=== PATIENT | female | born 1975 | race Caucasian/White ===

== ENCOUNTER 2017-11-14 20:35 | Observation (INO) | payer OTHER ==
[~2017-11-14] VITALS: Ht 160 cm; Wt 111.4 kg
[~2017-11-14 20:35] MED LIST: ALBU6.7H IH; AZIT250T6 PO; DICY20TA3 PO; DULO20CA50 PO; DULO60CA6 PO; FLUT16SP2 NS; HYDR-971 PO; LORA10TA68 PO; MONT10TA6 PO; MONT4GRA PO; NEBI10TA3 PO; OMEP40CA5 PO; ONDA8TAB12 PO; PREG150C PO; PREG20SO PO; PROP80CA3 PO; RANO10002 PO; TRAM50TA PO; TRAZ-86 PO
--- NOTE | 2017-11-14 21:14 | EKG ---
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
[2017-11-14] MEDS ORDERED: ASPIRIN 81 MG TAB.CHEW PO ONE (21:15)
[2017-11-14 21:21] LABS: BASO % 1 % (0-3); EOS # 0.1 x10^3/uL (0.0-0.7); EOS % 2 % (0-3); HEMATOCRIT 40.4 % (36.0-47.0); HEMOGLOBIN 13.6 g/dL (12.0-15.5); LYMPH # 2.2 x10^3/uL (1.0-4.8); LYMPH % 42 % (24-48); MEAN CORPUSCULAR HEMOGLOBIN 31 pg (25-35); MEAN CORPUSCULAR HGB CONC 34 g/dL (31-37); MEAN CORPUSCULAR VOLUME 92 fL (79-100); MONO # 0.4 x10^3/uL (0.0-1.1); MONO % 8 % (0-9); NEUT # 2.4 x10^3uL (1.8-7.7); NEUT % 47 % (31-73); PLATELET COUNT 267 x10^3/uL (140-400); RED BLOOD COUNT 4.39 x10^6/uL (3.50-5.40); RED CELL DISTRIBUTION WIDTH 12.9 % (11.5-14.5); WHITE BLOOD COUNT 5.2 x10^3/uL (4.0-11.0)
[2017-11-14 21:39] LABS: ALBUMIN 3.6 g/dL (3.4-5.0); CALCIUM 9.2 mg/dL (8.5-10.1); CREATININE 0.7 mg/dL (0.6-1.0); GFR 92.7; POTASSIUM 3.7 mmol/L (3.5-5.1); TOTAL BILIRUBIN 0.4 mg/dL (0.2-1.0); TOTAL PROTEIN 7.3 g/dL (6.4-8.2)
--- NOTE | 2017-11-14 21:40 | PHYS DOC ---
Past History Past Medical History: Arrhythmia, Asthma, Bronchitis, COPD, Fibromyalgia, Migraines Past Surgical History: Cholecystectomy, Gastric Bypass, Hysterectomy, Other Smoking: Non-smoker Alcohol Use: None Drug Use: None Adult General Chief Complaint Chief Complaint: CHEST PAIN HPI HPI 42-year-old female presents with sudden onset chest pain 90 minutes ago. The patient was walking down a flight of stairs when she began have some pain. She describes the pain as a sharp sensation in her left chest and into her left arm. He feels as though someone is jabbing her. At its worst was 8 out of 10. She has been coming and going in waves. At this time it is modest in pain level. She does not give me a number. The patient did have shortness of breath with this episode but denies diaphoresis. She was and continues to be flushed in the face. The patient has had symptoms similar to this in the past with exertion, but the pain is not this great. She has a history of stress test and cardiac catheter. She had a previous "small blockage that was cleared". She sees a hoisting engineer every 6 months. Until today her follow-up exams have been unremarkable. Patient denies cough, fever, chills, diarrhea, constipation. Review of Systems Review of Systems Constitutional: Denies fever or chills [] Eyes: Denies change in visual acuity, redness, or eye pain [] HENT: Denies nasal congestion or sore throat [] Respiratory: Denies cough or shortness of breath [] Cardiovascular: No additional information not addressed in HPI [] GI: Denies abdominal pain, nausea, vomiting, bloody stools or diarrhea [] : Denies dysuria or hematuria [] Musculoskeletal: Has full tenderness, left arm tenderness[] Integument: Denies rash or skin lesions [] Neurologic: Denies headache, focal weakness or sensory changes [] Endocrine: Denies polyuria or polydipsia [] All other systems were reviewed and found to be within normal limits, except as documented in this note. Current Medications Current Medications Current Medications Medications (Trade) Dose Ordered Sig/Donna Start Time Stop Time Status Last Admin Dose Admin Aspirin (Children'S Aspirin) 324 mg 1X ONCE 11/14/17 21:15 11/14/17 21:16 DC 11/14/17 21:15 324 MG Allergies Allergies Allergies Coded Allergies Type Severity Reaction Last Updated Verified Iodinated Contrast Media - IV Dye Allergy Intermediate 03/26/15 Yes Sulfa (Sulfonamide Antibiotics) Allergy Unknown 03/26/15 Yes Physical Exam Physical Exam Constitutional: Well developed, well nourished, no acute distress, non-toxic appearance. [] HENT: Normocephalic, atraumatic, bilateral external ears normal, oropharynx moist, no oral exudates, nose normal. [] Eyes: PERRLA, EOMI, conjunctiva normal, no discharge. [] Neck: Normal range of motion, no tenderness, supple, no stridor. [] Cardiovascular:Heart rate regular rhythm, no murmur [] Lungs & Thorax: Bilateral breath sounds clear to auscultation. Significant tenderness to palpation of the left chest and left upper arm[] Abdomen: Bowel sounds normal, soft, no tenderness, no masses, no pulsatile masses. [] Skin: Warm, dry, no erythema, no rash. [] Back: No tenderness, no CVA tenderness. [] Extremities: No tenderness, no cyanosis, no clubbing, ROM intact, no edema. [] Neurologic: Alert and oriented X 3, normal motor function, normal sensory function, no focal deficits noted. [] Psychologic: Affect normal, judgement normal, mood normal. [] Current Patient Data Vital Signs Vital Signs Date Time Temp Pulse Resp B/P (MAP) Pulse Ox O2 Delivery O2 Flow Rate FiO2 11/14/17 21:17 62 18 140/94 (109) 99 11/14/17 20:41 97.7 Room Air Lab Results Laboratory Tests Test 11/14/17 21:06 White Blood Count 5.2 x10^3/uL (4.0-11.0) Red Blood Count 4.39 x10^6/uL (3.50-5.40) Hemoglobin 13.6 g/dL (12.0-15.5) Hematocrit 40.4 % (36.0-47.0) Mean Corpuscular Volume 92 fL (79-100) Mean Corpuscular Hemoglobin 31 pg (25-35) Mean Corpuscular Hemoglobin Concent 34 g/dL (31-37) Red Cell Distribution Width 12.9 % (11.5-14.5) Platelet Count 267 x10^3/uL (140-400) Neutrophils (%) (Auto) 47 % (31-73) Lymphocytes (%) (Auto) 42 % (24-48) Monocytes (%) (Auto) 8 % (0-9) Eosinophils (%) (Auto) 2 % (0-3) Basophils (%) (Auto) 1 % (0-3) Neutrophils # (Auto) 2.4 x10^3uL (1.8-7.7) Lymphocytes # (Auto) 2.2 x10^3/uL (1.0-4.8) Monocytes # (Auto) 0.4 x10^3/uL (0.0-1.1) Eosinophils # (Auto) 0.1 x10^3/uL (0.0-0.7) Basophils # (Auto) 0.0 x10^3/uL (0.0-0.2) EKG EKG Sinus rhythm, rate 62, leftward axis, no ST elevations or depressions. Shallow T waves V2 through V6[] Radiology/Procedures Radiology/Procedures [] Impressions: Interpretation: There are no acute findings. No consolidations, no pneumothorax , no effusions. Course & Med Decision Making Course & Med Decision Making Pertinent Labs and Imaging studies reviewed. (See chart for details) Patient's labs are unremarkable. Her troponin is negative. Her EKG is unremarkable. Her chest x-ray is unremarkable. The patient continues to have left-sided chest discomfort. We will try nitroglycerin and morphine as necessary. Given the recent start of her pain, I feel as though she needs to have a full 3 troponin rule out. I discussed the patient with the hospitalist, Dr. Whitlock and he has agreed to admit the patient for chest pain rule out. [] Dragon Disclaimer Dragon Disclaimer This electronic medical record was generated, in whole or in part, using a voice recognition dictation system. Departure Departure: Referrals: REBEL PINA (PCP) JALEN JOHNSON DO Nov 14, 2017 21:40
[2017-11-14] MEDS: NITROGLYCERIN SUBLINGUAL 0.4 MG BOTTLE OF 25. SL ONE ×2 (22:56→23:00)
[2017-11-14] MEDS ORDERED: ONDANSETRON PF 4 MG/2 ML VIAL. IV PRN (23:00)
[2017-11-14] MEDS ORDERED: NITROGLYCERIN SUBLINGUAL 0.4 MG BOTTLE OF 25. SL PRN (23:00)
[2017-11-14] MEDS ORDERED: IV NORMAL SALINE 1,000ML 1,000 ML IV ONE (23:00)
[2017-11-14] MEDS: MORPHINE SULFATE 2 MG/ML DISP.SYRIN. IV PRN (23:13)
--- NOTE | 2017-11-14 23:28 | RAD ---
AP chest. HISTORY: Chest pain AP view was taken of the chest. Lungs are clear. Heart is normal in size. There is no effusion. There is hypertrophic change in the spine. IMPRESSION: 1. No acute chest disease. Electronically signed by: Magdi Newberry MD (11/14/2017 11:25 PM) [facility]
--- NOTE | 2017-11-14 23:45 | NUR ---
Pt was admitted from ER to [facility] room 119 via [facility], accompanied by EMS & nursing staff. Pt transferred [facility] to bed x3 assist. Pt here for c/o left arm & shoulder pain & r/o CP. Pt currently denies chest pain but states that her left arm/shoulder hurts, rating it 4-5/10. Pt has had an Gastric bypass (2013) and has had nausea &/or vomiting with intake ever since. Dietary consulted, along with PT/OT and CM. Admission assessment completed. Health history and home medications reviewed with pt, pt unsure of dosages but stated that "[facility] well and we can get a list from them tomorrow." VSS. Pt lives at home with her uncle Juan Pablo. SCD for VTE. Pt UTD Pneumonia vaccine. POC reviewed with pt, understanding verbalized. Pt was given written information regarding hospital policies, unit procedures and contact persons. Valuables were checked and left at bedside. Cardiology consulted. Call light within reach.
[2017-11-15 00:15] VITALS: BP 140/82
[2017-11-15] MEDS ORDERED: CYCL1DRO OU (02:42)
[2017-11-15] MEDS ORDERED: TOPI50TA8 PO (02:42)
[2017-11-15] MEDS ORDERED: SPIR50TA4 PO (02:42)
[2017-11-15] MEDS ORDERED: LACT1CAP38 PO (02:42)
[2017-11-15] MEDS ORDERED: ONDA4TAB12 PO (02:42)
[2017-11-15] MEDS ORDERED: TIZA4TAB PO (02:42)
[2017-11-15] MEDS ORDERED: CARV3.122 PO (02:42)
[2017-11-15] MEDS ORDERED: FLUT12AE INH (02:42)
[2017-11-15] MEDS ORDERED: CITA10TA4 PO (02:42)
[2017-11-15] MEDS ORDERED: ALPR0.5T6 PO (02:43)
[2017-11-15] MEDS ORDERED: RANI150T21 PO (02:43)
[2017-11-15 05:27] VITALS: BP 111/76
[2017-11-15] MEDS: MORPHINE SULFATE 2 MG/ML DISP.SYRIN. IV PRN (05:51)
[2017-11-15 07:40] LABS: BASO % 1 % (0-3); EOS # 0.1 x10^3/uL (0.0-0.7); EOS % 1 % (0-3); HEMATOCRIT 36.5 % (36.0-47.0); HEMOGLOBIN 12.4 g/dL (12.0-15.5); LYMPH # 1.8 x10^3/uL (1.0-4.8); LYMPH % 44 % (24-48); MEAN CORPUSCULAR HEMOGLOBIN 31 pg (25-35); MEAN CORPUSCULAR HGB CONC 34 g/dL (31-37); MEAN CORPUSCULAR VOLUME 92 fL (79-100); MONO # 0.4 x10^3/uL (0.0-1.1); MONO % 10 % (0-9); NEUT # 1.8 x10^3uL (1.8-7.7); NEUT % 44 % (31-73); PLATELET COUNT 207 x10^3/uL (140-400); RED BLOOD COUNT 3.96 x10^6/uL (3.50-5.40); RED CELL DISTRIBUTION WIDTH 12.6 % (11.5-14.5); WHITE BLOOD COUNT 4.1 x10^3/uL (4.0-11.0)
[2017-11-15 07:58] LABS: CALCIUM 8.6 mg/dL (8.5-10.1); CREATININE 0.6 mg/dL (0.6-1.0); GFR 110.7; POTASSIUM 3.6 mmol/L (3.5-5.1)
--- NOTE | 2017-11-15 09:01 | PDOC2 ---
CONSULT Date of Admission DATE: 11/15/17 TIME: 09:00 Reason for Consult: chest pain Problem List Problems Medical Problems: (1) Chest pain Status: Acute History of Present Illness Ms Gray is a 42 year old female who has previously been followed by [facility]. She presented with complaints of chest pain which started while walking down some stairs. She describes a stabbing pain in her left chest which radiates to her shoulder and down her left arm. She reports increased pain with upper body movement and deep inspiration. She reports associated shortness of breath and palpitations. She complains of nausea consistently secondary to gastric bypass surgery but denies any increase with the chest discomfort. She reports no improvement in the discomfort for greater than 40 minutes so her uncle encouraged her to present for evaluation. She denies similar pain previously. She complains of dyspnea on exertion with walking a quarter mile which resolves with sitting for 15-20 minutes. she reports intermittent palpitations which feel like her heart racing. She reports recurrent syncope with the last episode occurring last week. She denies any preceding symptoms and reports that loss of consciousness last week lasted 2 hours. She reports edema in her feet and legs which is stable on diuretics and normally improved in the mornings. She reports her most recent echo was completed on Tuesday at [facility]. She was offered consult with [facility] but declined stating she wished to change. Cardiovascular: CAD, HTN, syncope, Other (hypokalemia with HCTZ) Pulmonary: Asthma, COPD, Other (sleep apnea, sleep study ordered and pending) CENTRAL NERVOUS SYSTEM: Carpal Tunnel Syndrome, Migraine GI: GERD, Other (chronic nausea) Heme/Onc: No pertinent hx Hepatobiliary: No pertinent hx Psych: Anxiety, Depression Musculoskeletal: Osteoarthritis, Other (back pain) Rheumatologic: Fibromyalgia Infectious disease: No pertinent hx ENT: No pertinent hx Renal/: Other (kidney stones, endometriosis) Endocrine: No pertinent hx Dermatology: No pertinent hx Past Surgical History: Cholecystectomy, , Hysterectomy, Other ( gastric bypass) Family History strokes Social History She denies smoking, significant ETOH, or illicit drug use Current Medications Current Medications Aspirin (Children'S Aspirin) 324 mg 1X ONCE PO Last administered on 11/14/17at 21:15; Start 11/14/17 at 21:15; Stop 11/14/17 at 21:16; Status DC Nitroglycerin (Nitrostat) 0.4 mg 1X ONCE SL ; Start 11/14/17 at 23:00; Stop at 23:01; Status DC Sodium Chloride 1,000 ml @ 1,000 mls/hr 1X ONCE IV Last administered on at 22:56; Start 11/14/17 at 23:00; Stop 11/14/17 at 23:59; Status DC Ondansetron HCl (Zofran) 4 mg PRN Q4HRS PRN IV NAUSEA/VOMITING; Start 11/14/17 at 23:00; Stop 11/15/17 at 22:59 Morphine Sulfate (Morphine 2mg Syringe) 2 mg PRN Q2HR PRN IV PAIN Last administered on 11/15/17at 05:51; Start 11/14/17 at 23:00; Stop 11/15/17 at 22:59 Nitroglycerin (Nitrostat) 0.4 mg PRN Q5MIN PRN SL CHEST PAIN; Start 11/14/17 at 23:00; Stop 11/15/17 at 22:59 Active Scripts Active Reported Zantac (Ranitidine Hcl) 150 Mg Tablet 150 Mg PO BID LAST DOSE GIVEN: DATE: TIME: NEXT DOSE DUE: DATE: TIME: Alprazolam 0.5 Mg Tablet 0.5 Mg PO PRN BID PRN LAST DOSE GIVEN: DATE: TIME: NEXT DOSE DUE: DATE: TIME: Topiramate 50 Mg Tablet 50 Mg PO PRN BID PRN LAST DOSE GIVEN: DATE: TIME: NEXT DOSE DUE: DATE: TIME: Spironolactone 50 Mg Tablet 50 Mg PO BID LAST DOSE GIVEN: DATE: TIME: NEXT DOSE DUE: DATE: TIME: Carvedilol 3.125 Mg Tablet 3.125 Mg PO BIDWMEALS LAST DOSE GIVEN: DATE: TIME: NEXT DOSE DUE: DATE: TIME: Tizanidine Hcl (Tizanidine HCl) 4 Mg Tablet 4 Mg PO PRN BID PRN LAST DOSE GIVEN: DATE: TIME: NEXT DOSE DUE: DATE: TIME: Ondansetron Odt (Ondansetron) 4 Mg Tab.rapdis 4 Mg PO PRN Q6HRS PRN LAST DOSE GIVEN: DATE: TIME: NEXT DOSE DUE: DATE: TIME: Flovent 110MCG Hfa (Fluticasone Propionate) 12 Gm Aer.w.adap 1 Puff INH DAILY LAST DOSE GIVEN: DATE: TIME: NEXT DOSE DUE: DATE: TIME: Restasis (Cyclosporine) 1 Each Droperette 1 Drop OU BID LAST DOSE GIVEN: DATE: TIME: NEXT DOSE DUE: DATE: TIME: Citalopram Hbr (Citalopram Hydrobromide) 10 Mg Tablet 10 Mg PO DAILY LAST DOSE GIVEN: DATE: TIME: NEXT DOSE DUE: DATE: TIME: Restora Rx Capsule (Lactobacillus Casei/Folic Acid) 1 Each Capsule 1 Cap PO DAILY LAST DOSE GIVEN: DATE: TIME: NEXT DOSE DUE: DATE: TIME: Proventil Hfa Inhaler (Albuterol Sulfate) 6.7 Gm Hfa.aer.ad 1 Puff IH PRN QID PRN LAST DOSE GIVEN: DATE: TIME: NEXT DOSE DUE: DATE: TIME: Omeprazole 40 Mg Capsule.dr 40 Mg PO DAILY LAST DOSE GIVEN: DATE: TIME: NEXT DOSE DUE: DATE: TIME: Singulair Tablet (Montelukast Sodium) 10 Mg Tablet 10 Mg PO DAILY LAST DOSE GIVEN: DATE: TIME: NEXT DOSE DUE: DATE: TIME: Trazodone Hcl 100 Mg Tablet 300 Mg PO QHS LAST DOSE GIVEN: DATE: TIME: NEXT DOSE DUE: DATE: TIME: Cymbalta (Duloxetine Hcl) 60 Mg Capsule.dr 60 Mg PO DAILY LAST DOSE GIVEN: DATE: TIME: NEXT DOSE DUE: DATE: TIME: Lyrica (Pregabalin) 150 Mg Capsule 300 Mg PO BID LAST DOSE GIVEN: DATE: TIME: NEXT DOSE DUE: DATE: TIME: Allergies: Coded Allergies: Iodinated Contrast- Oral and IV Dye (Verified Allergy, Intermediate, ) Sulfa (Sulfonamide Antibiotics) (Verified Allergy, Intermediate, 11/15/17) Review of System as per HPI General: Alert, Oriented X3, Cooperative, No acute distress HEENT: Atraumatic, EOMI, Mucous membr. moist/pink, Other (no carotid bruits, no JVD) Lungs: Clear to auscultation, Normal air movement Heart: Regular rate, Normal S1, Normal S2, Other (no gallops, clicks or rubs, no significant murmurs) Abdomen: Normal bowel sounds, Soft, No tenderness Extremities: No cyanosis, Normal pulses, Other (trace edema) Neuro: Normal speech, Strength at 5/5 X4 ext Psych/Mental Status: Mental status NL, Mood NL VITALS Vital Signs Date Time Temp Pulse Resp B/P (MAP) Pulse Ox O2 Delivery O2 Flow Rate FiO2 11/15/17 06:20 18 Room Air 11/15/17 05:27 97.8 68 111/76 (88) 98 Labs Laboratory Tests Test 11/14/17 21:06 11/15/17 00:29 11/15/17 06:58 White Blood Count 5.2 x10^3/uL (4.0-11.0) 4.1 x10^3/uL (4.0-11.0) Red Blood Count 4.39 x10^6/uL (3.50-5.40) 3.96 x10^6/uL (3.50-5.40) Hemoglobin 13.6 g/dL (12.0-15.5) 12.4 g/dL (12.0-15.5) Hematocrit 40.4 % (36.0-47.0) 36.5 % (36.0-47.0) Mean Corpuscular Volume 92 fL (79-100) 92 fL (79-100) Mean Corpuscular Hemoglobin 31 pg (25-35) 31 pg (25-35) Mean Corpuscular Hemoglobin Concent 34 g/dL (31-37) 34 g/dL (31-37) Red Cell Distribution Width 12.9 % (11.5-14.5) 12.6 % (11.5-14.5) Platelet Count 267 x10^3/uL (140-400) 207 x10^3/uL (140-400) Neutrophils (%) (Auto) 47 % (31-73) 44 % (31-73) Lymphocytes (%) (Auto) 42 % (24-48) 44 % (24-48) Monocytes (%) (Auto) 8 % (0-9) 10 % (0-9) Eosinophils (%) (Auto) 2 % (0-3) 1 % (0-3) Basophils (%) (Auto) 1 % (0-3) 1 % (0-3) Neutrophils # (Auto) 2.4 x10^3uL (1.8-7.7) 1.8 x10^3uL (1.8-7.7) Lymphocytes # (Auto) 2.2 x10^3/uL (1.0-4.8) 1.8 x10^3/uL (1.0-4.8) Monocytes # (Auto) 0.4 x10^3/uL (0.0-1.1) 0.4 x10^3/uL (0.0-1.1) Eosinophils # (Auto) 0.1 x10^3/uL (0.0-0.7) 0.1 x10^3/uL (0.0-0.7) Basophils # (Auto) 0.0 x10^3/uL (0.0-0.2) 0.0 x10^3/uL (0.0-0.2) Sodium Level 140 mmol/L (136-145) 139 mmol/L (136-145) Potassium Level 3.7 mmol/L (3.5-5.1) 3.6 mmol/L (3.5-5.1) Chloride Level 104 mmol/L (98-107) 106 mmol/L (98-107) Carbon Dioxide Level 26 mmol/L (21-32) 27 mmol/L (21-32) Anion Gap 10 (6-14) 6 (6-14) Blood Urea Nitrogen 8 mg/dL (7-20) 8 mg/dL (7-20) Creatinine 0.7 mg/dL (0.6-1.0) 0.6 mg/dL (0.6-1.0) Estimated GFR (Cockcroft-Gault) 92.7 110.7 BUN/Creatinine Ratio 11 (6-20) Glucose Level 84 mg/dL (70-99) 77 mg/dL (70-99) Calcium Level 9.2 mg/dL (8.5-10.1) 8.6 mg/dL (8.5-10.1) Total Bilirubin 0.4 mg/dL (0.2-1.0) Aspartate Amino Transf (AST/SGOT) 17 U/L (15-37) Alanine Aminotransferase (ALT/SGPT) 21 U/L (14-59) Alkaline Phosphatase 105 U/L (46-116) Troponin I Quantitative < 0.017 ng/mL (0-0.055) < 0.017 ng/mL (0-0.055) < 0.017 ng/mL (0-0.055) Total Protein 7.3 g/dL (6.4-8.2) Albumin 3.6 g/dL (3.4-5.0) Albumin/Globulin Ratio 1.0 (1.0-1.7) Images EKG - sinus rhythm, no acute ischemic changes CXR - no acute disease Assessment/Plan 1. chest pain, atypical - reported history of prior cath with mild CAD and stress test within the last 2 years not suggestive of significant disease. Koby negative x 3, no acute EKG changes. Will request copies of cath, MPI and most recent echo (reportedly done Tuesday). Continue aspirin and beta lucas. check lipids and start statin if indicated. Consider radiculopathy. 2. dyspnea on exertion - likely secondary to deconditioning and asthma. Await echo results. CXR without acute abnormalities. Consider outpatient PFTs. 3. recurrent syncope - suggest MCT outpatient and consider neuro evaluation. 4. palpitations - no significant arrhythmias since admission. MCT as above. 5. hypertension - controlled on current home medications. Resume home medications. 6. GERD - PPI. mgmt per IM 7. unknown lipids - check FLP 8. obesity s/p gastric bypass with chronic nausea - per IM [facility] and [facility]. Abnormal MPI in 2013 followed by cardiac cath with no significant coronary disease. Treated with Ranexa for possible microvascular disease. Repeat MPI in 2014 was normal. Echo in 2013, 2014 and Tuesday without any significant findings. EF normal and wall motion normal. Suspect chest pain secondary to radiculopathy. Would consider follow up with PCP and consider MRI of CSpine, Tspine. History of recurrent syncope with prolonged LOC by report unlikely cardiac in origin. Prior event monitoring without any arrhythmias or ectopy. Consider repeat MCT for 30 days and neuro evaluation. DONALD JARRETT BITUMINOUS DISTRIBUTOR OPERATOR Nov 15, 2017 09:01
[2017-11-15 10:55] VITALS: BP 129/86
--- NOTE | 2017-11-15 13:58 | HP ---
ADMIT DATE: 11/14/2017 HISTORY OF PRESENT ILLNESS: The patient is a 42-year-old female patient who came to the Emergency Room with complaint of chest pain with sudden onset when she was walking down a flight of stairs when she began to have some pain. She describes the pain as sharp sensation in her left chest radiating to the left arm. She feels as though someone is stabbing her. It was about 8/10 in severity. Apparently, the pain has been coming and going in waves. Just had some nausea, but no vomiting. She also felt dizzy, short of breath. The initial episode has lasted for about 2 hours. She has had similar pain while she is sitting in the bed and not related to any exertion. She denied any diaphoresis. PAST MEDICAL HISTORY: The patient has extensive medical history. She is known to have hypertension but seemed to have arrhythmias with syncopal episode. She has a history of nephrolithiasis, bronchial asthma, fibromyalgia, left-sided carpal tunnel syndrome, migraine headache, and COPD. PAST SURGICAL HISTORY: Past surgical history is significant for left carpal tunnel release, , gastric bypass surgery after which she lost about 200 pounds, cholecystectomy, ulnar nerve transposition. ALLERGIES: She is ALLERGIC TO IODINATED CONTRAST, ORAL AND IV DYE, SULFA DRUGS, as well as BECCA. MEDICATIONS: She is currently on following medications: She is on albuterol sulfate 1 puff 4 times a day, tizanidine 4 mg twice a day, carvedilol 3.125 mg twice a day, spironolactone 50 mg twice a day, topiramate 50 mg twice a day, citalopram hydrobromide 10 mg daily, duloxetine 60 mg daily, trazodone 300 mg at bedtime. She is on alprazolam 0.5 mg twice a day, fluticasone propionate for Flovent 110 mcg, she takes 2 puffs twice a day, montelukast for Singulair 10 mg at bedtime, cyclosporine for Restasis 1 drop to both eyes twice a day, ondansetron 4 mg every 6 hours as needed for nausea and vomiting, ranitidine 150 mg twice a day, omeprazole 40 mg daily, lactobacillus KCI 1 capsule daily. She is also on Lyrica. FAMILY HISTORY: She has one full brother, alive, older and apparently healthy. She has two half-sisters, does not know anything about them. Her father is alive at the age of 65 and apparently has left side flaccid paralysis and he is in a long[facility]term [facility] for the last 3 years. Her mother is still alive at age of 64. She has metastatic breast cancer. SOCIAL HISTORY: She is engaged. She has a son and a daughter. She does not smoke, drink alcohol, or recreational drugs. 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 REVIEW OF SYSTEMS: The patient denied any blurring of vision, cataract, glaucoma or macular degeneration. Denied any earache, tinnitus or sensorineural deafness. Denied any nosebleeds, stuffy nose or postnasal drip. Denied any sore throat, sore tongue, toothache, hoarseness of voice, difficulty swallowing. Did complain of nausea, but no vomiting. Denied any diarrhea or constipation. Denied any hematemesis, melena or hematochezia. Denied any dysuria, frequency or hematuria. PHYSICAL EXAMINATION: GENERAL: On examining her, she looked well and was clearly in no apparent respiratory distress, pale, but no jaundice, cyanosis, or thyromegaly. No jugular venous distension. No lower limb edema. VITAL SIGNS: Her heart rate was 72, blood pressure was 140/94, temperature was 97.7, respiratory rate was 20, and oxygen saturation was 97% on room air. HEENT: Examination of the head, eyes, ears, nose and throat showed normocephalic, atraumatic. NECK: Supple. HEART: Showed normal first and second sounds. No gallop, rub or murmur. CHEST: Clear to auscultation. No crepitation or rhonchi. ABDOMEN: Distended, soft, nontender. NEUROLOGIC: She is awake, alert, responding appropriately. Cranial nerves are intact. EXTREMITIES: She moves extremities without difficulty. LABORATORY AND DIAGNOSTIC DATA: While in the Emergency Room, she has had lab work done showed a white cell count of 5200, hemoglobin 13, hematocrit 40, MCV 92, and platelet count 267,000. Her chemistry showed a serum sodium 140, potassium 3.7, chloride 104, bicarbonate 26, anion gap of 10, BUN 8, creatinine 0.7, estimated GFR was 93 mL per minute. Her glucose was 84, calcium was 9.2. Total bilirubin, AST, ALT, alkaline phosphatase was normal. Total protein 7.3, albumin 3.6. Her first set of cardiac enzymes showed troponin to be less than 0.017. Her EKG showed that she was in sinus rhythm at a rate of 62 with leftward axis, no ST elevation or depression. PLAN: The patient was admitted to do 2 more sets of cardiac enzymes, check an echocardiogram, and a consult with cardiology team. JHON TAVERAS MD DR: CATA/bear JOB#: [id number] / [id number]
--- NOTE | 2017-11-15 15:59 | RAD ---
CT of the cervical spine without contrast, 11/15/2017: HISTORY: Left-sided arm and chest pain Noncontrast scans were obtained with multiplanar reconstructions produced. No fracture or dislocation is identified. There are mild degenerative changes involving scattered facet joints bilaterally. There are minimal scattered marginal spurs. The posterior disc margins are not clearly defined. No high-grade central spinal or foraminal stenosis is identified. Incidental note is made of several small nonspecific bilateral thyroid nodules as well as right thyroid calcifications. IMPRESSION: 1. Mild scattered degenerative changes. 2. No acute bony abnormality is detected. 3. Small bilateral thyroid nodules. PQRS Compliance Statement: One or more of the following individualized dose reduction techniques were utilized for this examination: 1. Automated exposure control 2. Adjustment of the mA and/or kV according to patient size 3. Use of iterative reconstruction technique Electronically signed by: New Banda MD (11/15/2017 3:55 PM) [facility]
[2017-11-15] MEDS ORDERED: ALBUTEROL SULFATE 8GM INHALER. IH PRN (16:00)
[2017-11-15] MEDS ORDERED: ALPRAZolam 0.5 MG TABLET PO PRN (16:30)
[2017-11-15] MEDS ORDERED: TOPIRAMATE 25 MG TABLET. PO PRN (16:30)
[2017-11-15] MEDS ORDERED: ALBUTEROL SULFATE 2.5 MG/3 ML NEBU. NEB PRN (16:30)
[2017-11-15] MEDS ORDERED: SPIRONOLACTONE 25 MG TABLET PO SCH (16:30)
[2017-11-15] MEDS ORDERED: ONDANSETRON ODT 4 MG TAB.RAPDIS PO PRN (16:30)
--- NOTE | 2017-11-15 16:52 | NUR ---
NSG NOTE; DISCHARGE VERBAL AND WRITTEN DISCHARGE INSTRUCTIONS GIVEN TO PT WITH VERBAL UNDERSTANDING. DISCHARGE HOME AT 1650 VIA AMB ACCOMP BY
[2017-11-15] MEDS ORDERED: CARVEDILOL 3.125 MG TABLET PO SCH (17:00)
--- NOTE | 2017-11-15 19:09 | DS ---
DATE OF DISCHARGE: 11/15/2017 HOSPITAL COURSE: The patient is a 42-year-old female patient who was admitted with chest pain that was fairly atypical. Her first set of cardiac enzyme was negative. EKG was unrevealing and therefore she was admitted to do 2 more sets of cardiac enzymes and to consult the cardiology team. She was in fact seen by the cardiology team. She had 3 sets of cardiac enzymes, which were negative. She apparently was followed by the [facility] and we did get all the information faxed to us from their office turned out that the patient was extensively investigated before. Her complaint is more consistent with cervical spondylosis and musculoskeletal problem rather than cardiac problem. She apparently had a nuclear stress test in 2013, followed by cardiac catheterization with no significant coronary disease. She was treated with Ranexa for possible microvascular disease and nuclear stress test in 2014, was normal. Her echocardiogram in 2013, 2014, and last week showed no significant finding, ejection fraction and wall motion were normal. The cardiology team felt that her chest pain, which is mostly in the left side and involving left upper extremity is probably secondary to cervical radiculopathy. I did actually a CT scan of the neck, which showed some degenerative changes, but no acute bony abnormalities detected; therefore, the patient was discharged home to follow with her primary care physician with a plan to arrange for an MRI of her cervical and thoracic spine. PHYSICAL EXAMINATION: GENERAL: When I saw her this afternoon, she looked well and was clearly in no apparent respiratory distress. No pallor, jaundice, cyanosis, or thyromegaly. No jugular venous distension. No limb edema. VITAL SIGNS: Her heart rate was 58, blood pressure 129/86, temperature was 98.2, respiratory rate was 20, and oxygen saturation was 95%. HEAD, EYES, EARS, NOSE AND THROAT: Showed normocephalic, atraumatic. NECK: Supple. HEART: Showed normal first and second sounds. No gallop, rub or murmur. CHEST: Clear to auscultation. No crepitation or rhonchi. ABDOMEN: Distended, soft, nontender. No guarding or rigidity. No organomegaly. All hernial orifices are intact. Bowel sounds normal. NEUROLOGIC: She was awake, alert, responding appropriately. Cranial nerves intact. EXTREMITIES: She moves extremities without difficulty. She ambulates without assistance or assistive devices. LABORATORY DATA: Her lab work this morning showed a white cell count of 4100, hemoglobin 12.4, hematocrit 36.5, MCV 92, and platelet count of 207,000. Her chemistry showed serum sodium of 139, potassium 3.6, chloride 106, bicarbonate 27, anion gap of 6, BUN 8, creatinine 0.6, estimated GFR was 110 mL per minute, her glucose was 77, calcium was 8.6. Her CT scan of the cervical spine showed mild scattered degenerative changes, no acute bony abnormalities detected. She has small bilateral thyroid nodules. DISCHARGE MEDICATIONS: She was discharged home to continue on albuterol sulfate 1 puff 4 times a day, alprazolam 0.5 mg twice a day, carvedilol 3.125 mg twice a day, citalopram hydrobromide 10 mg daily, cyclosporine or Restasis 1 drop to both eyes twice a day, duloxetine or Cymbalta 60 mg daily, Flovent 110 mcg 2 puffs twice a day, lactobacillus casei 1 capsule daily, Singulair 10 mg at bedtime, omeprazole 40 mg once a day, ondansetron 4 mg every 6 hours, ranitidine or Zantac 150 mg twice a day, spironolactone 50 mg twice a day, tizanidine 4-8 mg twice a day, topiramate 50 mg twice a day, trazodone 300 mg at bedtime. FINAL DISCHARGE DIAGNOSES: Chest pain, fairly atypical, myocardial infarction ruled out. The patient had recurrent syncope and apparently has had a Holter monitor and event monitor before. Hypertension, well controlled; gastroesophageal reflux disease, she is on proton pump inhibitor; obesity, status post gastric bypass surgery; chronic nausea. JHON TAVERAS MD DR: CATA/bear JOB#: [id number] / [id number]
[2017-11-15] MEDS ORDERED: LACTOBACILLUS RHAMNOSUS GG 1 CAPSULE. PO SCH (21:00)
[2017-11-15] MEDS ORDERED: cycloSPORINE 0.05% OPTH 1 DROP DROPERETTE OU SCH (21:00)
[2017-11-15] MEDS ORDERED: FLUTICASONE 50MCG/NASAL SPRAY 16GM BOTTLE. NS SCH (21:00)
[2017-11-15] MEDS ORDERED: FAMOTIDINE 20 MG TABLET PO SCH (21:00)
[2017-11-15] MEDS ORDERED: traZODone 150 MG TABLET. PO SCH (21:00)
[2017-11-15] MEDS ORDERED: MONTELUKAST 10 MG TABLET. PO SCH (21:00)
[2017-11-16] MEDS ORDERED: CITALOPRAM 10 MG TABLET. PO SCH (09:00)
[2017-11-16] MEDS ORDERED: PANTOPRAZOLE 40 MG TABLET. PO SCH (09:00)
[2017-11-16] MEDS ORDERED: DULoxetine HCL 60 MG CAPSULE.DR PO SCH (09:00)
--- NOTE | 2017-11-17 15:41 | EKG ---
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
== END 2017-11-15 16:50 | disposition home or self-care (01) ==
LOC: ER 20:35 → INTOOBSV 23:00 → 1 SOUTH 23:00
PROVIDERS: ADMIT Internal Medicine; ATTEND Internal Medicine
DX: R07.89 Other chest pain (principal); E66.9 Obesity, unspecified; E87.6 Hypokalemia; F32.9 Major depressive disorder, single episode, unspecified; F41.9 Anxiety disorder, unspecified; G43.909 Migraine, unspecified, not intractable, without status migrainosus; G56.00 Carpal tunnel syndrome, unspecified upper limb; I10 Essential (primary) hypertension; I25.10 Atherosclerotic heart disease of native coronary artery without angina pectoris; J44.9 Chronic obstructive pulmonary disease, unspecified; K21.9 Gastro-esophageal reflux disease without esophagitis; M54.12 Radiculopathy, cervical region; N80.9 Endometriosis, unspecified; M79.7 Fibromyalgia; Z87.442 Personal history of urinary calculi
CPT/HCPCS: 36415; 71045; 72125; 80048; 80053; 84484; 85025; 93005; 96361; 96374; 96376; 99285; G0378; G0379; J2270; 96360; J7030

== ENCOUNTER 2018-06-23 16:52 | Emergency (ER) | payer OTHER ==
[~2018-06-23 16:52] MED LIST changes: +ALBU2.5V8 IH; -ALBU6.7H IH; +ALPR0.5T6 PO; +CARV3.1230 PO; +CITA10TA4 PO; +CYCL1DRO OU; +FLUT12AE INH; +HYDR-3165 PO; -HYDR-971 PO; +LACT1CAP38 PO; +ONDA4TAB12 PO; +RANI150T21 PO; +SPIR50TA4 PO; +TIZA4TAB PO; +TOPI50TA8 PO
[2018-06-23 17:30] VITALS: BP 164/97
[2018-06-23] MEDS ORDERED: cloNIDine HCL 0.1 MG TABLET PO ONE ×2 (17:30→18:30)
--- NOTE | 2018-06-23 17:35 | EKG ---
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
--- NOTE | 2018-06-23 17:38 | RAD ---
Examination: CT HEAD WO CONTRAST History: HEADACHE,NAUSEA/HYPERTENSION Comparison/Correlation: None Findings: Axial images of the head were obtained without contrast. Ventricles are normal size. No intracranial hemorrhage, midline shift, or mass effect. Globes and optic nerves are unremarkable. Bony structures are unremarkable. Partially visualized paranasal sinuses are unremarkable. Impression: Normal CT head without contrast. PQRS Compliance Statement: One or more of the following individualized dose reduction techniques were utilized for this examination: 1. Automated exposure control 2. Adjustment of the mA and/or kV according to patient size 3. Use of iterative reconstruction technique Electronically signed by: Iam Morelos MD (06/23/2018 5:35 PM) [facility]
--- NOTE | 2018-06-23 17:46 | PHYS DOC ---
Past History Past Medical History: A-Fib, Fibromyalgia, Hypertension, Other (EBENEZER CARDONA MD) Past Surgical History: Gastric Bypass (EBENEZER CARDONA MD) Smoking: Non-smoker Alcohol Use: None Drug Use: None (EBENEZER CARDONA MD) Adult General Chief Complaint Chief Complaint: HYPERTENSION HPI HPI Patient is a 43 year old female who presents with complaining of elevation of blood pressure. Patient states she was at pain management at [facility] today and had blood pressure of 160/100 in one arm and 160/105 in the other arm without having history of hypertension. Patient also complaining of headache related to elevation of her blood pressure and rated her pain 8/10. Patient states she takes cordate given by her cloth opener hand without history of hypertension. Patient states she lost her mother less than 1 week ago and is under lots of stress. She denies focal neuro deficit, vomiting, fever and chills , neck pain, blurred vision, chest pain and shortness of breath. She denies using drugs and alcohol. (EBENEZER CARDONA MD) Review of Systems Review of Systems Constitutional: Denies fever or chills [] Eyes: Denies change in visual acuity, redness, or eye pain [] HENT: Denies nasal congestion or sore throat [] Respiratory: Denies cough or shortness of breath [] Cardiovascular: No additional information not addressed in HPI [] GI: Denies abdominal pain, nausea, vomiting, bloody stools or diarrhea [] : Denies dysuria or hematuria [] Musculoskeletal: Denies back pain or joint pain [] Integument: Denies rash or skin lesions [] Neurologic: Reports headache, denies focal weakness or sensory changes [] Endocrine: Denies polyuria or polydipsia [] All other systems were reviewed and found to be within normal limits, except as documented in this note. (EBENEZER CARDONA MD) Current Medications Current Medications Current Medications Medications (Trade) Dose Ordered Sig/Donna Start Time Stop Time Status Last Admin Dose Admin Clonidine HCl (Catapres) 0.1 mg 1X ONCE 06/23/18 17:30 06/23/18 17:31 DC (EBENEZER CARDONA MD) Allergies Allergies Allergies Coded Allergies Type Severity Reaction Last Updated Verified Iodinated Contrast- Oral and IV Dye Allergy Intermediate 03/26/15 Yes Sulfa (Sulfonamide Antibiotics) Allergy Intermediate 11/15/17 Yes (EBENEZER CARDONA MD) Physical Exam Physical Exam Constitutional: Well developed, well nourished, mild distress, non-toxic appearance. [] HENT: Normocephalic, atraumatic, bilateral external ears normal, oropharynx moist, no oral exudates, nose normal. [] Eyes: PERRLA, EOMI, conjunctiva normal, no discharge. [] Neck: Normal range of motion, no tenderness, supple, no stridor. [] Cardiovascular:Heart rate regular rhythm, no murmur [] Lungs & Thorax: Bilateral breath sounds clear to auscultation [] Abdomen: Bowel sounds normal, soft, no tenderness, no masses, no pulsatile masses. [] Skin: Warm, dry, no erythema, no rash. [] Back: No tenderness, no CVA tenderness. [] Extremities: No tenderness, no cyanosis, no clubbing, ROM intact, no edema. [] Neurologic: Alert and oriented X 3, normal motor function, normal sensory function, no focal deficits noted. [] Psychologic: Affect anxious, judgement normal, mood normal. [] (EBENEZER CARDONA MD) Current Patient Data Vital Signs Vital Signs Date Time Temp Pulse Resp B/P (MAP) Pulse Ox O2 Delivery O2 Flow Rate FiO2 06/23/18 17:03 97.4 79 18 97 Room Air (EBENEZER CARDONA MD) EKG EKG EKG interpreted by me. EKG at 1725 showed normal sinus rhythm at rate of 62, no acute ST and T-wave abnormalities. (EBENEZER CARDONA MD) Radiology/Procedures Radiology/Procedures [] (EBENEZER CARDONA MD) Radiology/Procedures My interpretation CT of head shows no shift, mass, edema, or bleed. (BRYAN WELLS MD) Course & Med Decision Making Course & Med Decision Making Pertinent Labs and Imaging studies are pending. Evaluation of patient in ER showed 43-year-old female patient presented to ER because of elevation of blood pressure at 160s and was told by her primary care physician to come to ER for evaluation. Patient had blood pressure of 160s over 100 in ER. Patient had unremarkable physical exam. Labs and CT head is pending. Patient care transferred to Dr. Wells at 1800. (EBENEZER CARDONA MD) Course & Med Decision Making Impression 1. Hypertension 2. History of migraine headaches 3. Mild hypokalemia Patient push fruit juices. Patient follow-up primary care. Patient's take her blood pressure 3 times a day in both arms. Patient to document these readings. Patient shows record to your primary care. Patient also take her blood pressure cuff and compare it readings with the doctor's office readings. Patient to wear clonidine patch until follow-up. Patient has follow up with Dr. Shine this week. Patient return of any concerns. Keep follow up with specialists as planned. (BRYAN WELLS MD) Dragon Disclaimer Dragon Disclaimer This electronic medical record was generated, in whole or in part, using a voice recognition dictation system. (EBENEZER CARDONA MD) Departure Departure: Impression: Primary Impression: Elevated blood pressure reading without diagnosis of hypertension Referrals: REBEL PINA (PCP) Dragon Disclaimer This chart was dictated in whole or in part using Voice Recognition software in a busy, high-work load, and often noisy Emergency Department environment. It may contain unintended and wholly unrecognized errors or omissions. (BRYAN WELLS MD) Discharge Summary Visit Information Final Diagnosis Problems Medical Problems: (1) Elevated blood pressure reading without diagnosis of hypertension Status: Acute (2) Migraine Status: Acute (BRYAN WELLS MD) Brief Hospital Course Allergies Allergies Coded Allergies Type Severity Reaction Last Updated Verified Iodinated Contrast- Oral and IV Dye Allergy Intermediate 03/26/15 Yes Sulfa (Sulfonamide Antibiotics) Allergy Intermediate 11/15/17 Yes Vital Signs Vital Signs Date Time Temp Pulse Resp B/P (MAP) Pulse Ox O2 Delivery O2 Flow Rate FiO2 06/23/18 17:30 79 164/97 06/23/18 17:03 97.4 18 97 Room Air Lab Results Laboratory Tests Test 06/23/18 18:00 White Blood Count 4.3 x10^3/uL (4.0-11.0) Red Blood Count 4.20 x10^6/uL (3.50-5.40) Hemoglobin 12.6 g/dL (12.0-15.5) Hematocrit 37.8 % (36.0-47.0) Mean Corpuscular Volume 90 fL (79-100) Mean Corpuscular Hemoglobin 30 pg (25-35) Mean Corpuscular Hemoglobin Concent 33 g/dL (31-37) Red Cell Distribution Width 12.9 % (11.5-14.5) Platelet Count 202 x10^3/uL (140-400) Neutrophils (%) (Auto) 51 % (31-73) Lymphocytes (%) (Auto) 39 % (24-48) Monocytes (%) (Auto) 9 % (0-9) Eosinophils (%) (Auto) 1 % (0-3) Basophils (%) (Auto) 1 % (0-3) Neutrophils # (Auto) 2.2 x10^3uL (1.8-7.7) Lymphocytes # (Auto) 1.7 x10^3/uL (1.0-4.8) Monocytes # (Auto) 0.4 x10^3/uL (0.0-1.1) Eosinophils # (Auto) 0.0 x10^3/uL (0.0-0.7) Basophils # (Auto) 0.0 x10^3/uL (0.0-0.2) Urine Collection Type Unknown Urine Color Yellow Urine Clarity Cloudy Urine pH 5.5 Urine Specific [place] <=1.005 Urine Protein Neg (NEG-TRACE) Urine Glucose (UA) Neg mg/dL (NEG) Urine Ketones (Stick) Neg mg/dL (NEG) Urine Blood Neg (NEG) Urine Nitrite Neg (NEG) Urine Bilirubin Neg (NEG) Urine Urobilinogen Dipstick 0.2 mg/dL (0.2 mg/dL) Urine Leukocyte Esterase Neg (NEG) Urine RBC 1-2 /HPF (0-2) Urine WBC 1-4 /HPF (0-4) Urine Squamous Epithelial Cells Mod /LPF Urine Bacteria Mod /HPF (0-FEW) Urine Mucus Slight /LPF Sodium Level 142 mmol/L (136-145) Potassium Level 3.4 mmol/L (3.5-5.1) Chloride Level 107 mmol/L (98-107) Carbon Dioxide Level 27 mmol/L (21-32) Anion Gap 8 (6-14) Blood Urea Nitrogen 11 mg/dL (7-20) Creatinine 0.8 mg/dL (0.6-1.0) Estimated GFR (Cockcroft-Gault) 79.0 BUN/Creatinine Ratio 14 (6-20) Glucose Level 93 mg/dL (70-99) Calcium Level 9.2 mg/dL (8.5-10.1) Total Bilirubin 0.5 mg/dL (0.2-1.0) Aspartate Amino Transf (AST/SGOT) 13 U/L (15-37) Alanine Aminotransferase (ALT/SGPT) 13 U/L (14-59) Alkaline Phosphatase 97 U/L (46-116) Troponin I Quantitative < 0.017 ng/mL (0-0.055) Total Protein 7.0 g/dL (6.4-8.2) Albumin 3.3 g/dL (3.4-5.0) Albumin/Globulin Ratio 0.9 (1.0-1.7) Urine Opiates Screen Neg (NEG) Urine Methadone Screen Neg (NEG) Urine Barbiturates Neg (NEG) Urine Phencyclidine Screen Neg (NEG) Urine Amphetamine/Methamphetamine Neg (NEG) Urine Benzodiazepines Screen Neg (NEG) Urine Cocaine Screen Neg (NEG) Urine Cannabinoids Screen Neg (NEG) Urine Ethyl Alcohol Neg (NEG) Brief Hospital Course Ms. Gray is a 43 old male who presented with complaints of migraine headache and hypertension. (BRYAN WELLS MD) Discharge Information Condition at Discharge: Improved, Stable Disposition/Orders: D/C to Home Dischare Medications Current Medications Clonidine HCl (Catapres) 0.1 mg 1X ONCE PO Last administered on 06/23/18at 17:30 ; Start 06/23/18 at 17:30; Stop 06/23/18 at 17:31; Status DC Clonidine HCl (Catapres Tts-2) 1 patch 1X ONCE TD ; Start 06/23/18 at 18:30; Stop 06/23/18 at 18:31; Status DC Clonidine HCl (Catapres) 0.1 mg 1X ONCE PO ; Start 06/23/18 at 18:30; Stop at 18:31; Status DC Ketorolac Tromethamine (Toradol 30mg Vial) 30 mg 1X ONCE IV ; Start 06/23/18 at 19:00; Stop 06/23/18 at 19:01; Status DC Active Scripts Active Reported Zantac (Ranitidine Hcl) 150 Mg Tablet 150 Mg PO BID LAST DOSE GIVEN: DATE: TIME: NEXT DOSE DUE: DATE: TIME: Alprazolam 0.5 Mg Tablet 0.5 Mg PO PRN BID PRN LAST DOSE GIVEN: DATE: TIME: NEXT DOSE DUE: DATE: TIME: Topiramate 50 Mg Tablet 50 Mg PO BID PRN LAST DOSE GIVEN: DATE: TIME: NEXT DOSE DUE: DATE: TIME: Spironolactone 50 Mg Tablet 50 Mg PO BID LAST DOSE GIVEN: DATE: TIME: NEXT DOSE DUE: DATE: TIME: Carvedilol 3.125 Mg Tablet 3.125 Mg PO BIDWMEALS LAST DOSE GIVEN: DATE: TIME: NEXT DOSE DUE: DATE: TIME: Tizanidine Hcl (Tizanidine HCl) 4 Mg Tablet 4-8 Mg PO PRN BID PRN LAST DOSE GIVEN: DATE: TIME: NEXT DOSE DUE: DATE: TIME: Ondansetron Odt (Ondansetron) 4 Mg Tab.rapdis 4 Mg PO PRN Q6HRS PRN LAST DOSE GIVEN: DATE: TIME: NEXT DOSE DUE: DATE: TIME: Flovent 110MCG Hfa (Fluticasone Propionate) 12 Gm Aer.w.adap 2 Puff INH BID LAST DOSE GIVEN: DATE: TIME: NEXT DOSE DUE: DATE: TIME: Restasis (Cyclosporine) 1 Each Droperette 1 Drop OU BID LAST DOSE GIVEN: DATE: TIME: NEXT DOSE DUE: DATE: TIME: Citalopram Hbr (Citalopram Hydrobromide) 10 Mg Tablet 10 Mg PO DAILY LAST DOSE GIVEN: DATE: TIME: NEXT DOSE DUE: DATE: TIME: Restora Rx Capsule (Lactobacillus Casei/Folic Acid) 1 Each Capsule 1 Cap PO DAILY LAST DOSE GIVEN: DATE: TIME: NEXT DOSE DUE: DATE: TIME: Proventil Hfa Inhaler (Albuterol Sulfate) 6.7 Gm Hfa.aer.ad 1 Puff IH PRN QID PRN LAST DOSE GIVEN: DATE: TIME: NEXT DOSE DUE: DATE: TIME: Omeprazole 40 Mg Capsule.dr 40 Mg PO DAILY LAST DOSE GIVEN: DATE: TIME: NEXT DOSE DUE: DATE: TIME: Singulair Tablet (Montelukast Sodium) 10 Mg Tablet 10 Mg PO HS LAST DOSE GIVEN: DATE: TIME: NEXT DOSE DUE: DATE: TIME: Trazodone Hcl 100 Mg Tablet 300 Mg PO QHS LAST DOSE GIVEN: DATE: TIME: NEXT DOSE DUE: DATE: TIME: Cymbalta (Duloxetine Hcl) 60 Mg Capsule.dr 60 Mg PO DAILY LAST DOSE GIVEN: DATE: TIME: NEXT DOSE DUE: DATE: TIME: (BRYAN WELLS MD) EBENEZER CARDONA MD Jun 23, 2018 17:46 BRYAN WELLS MD Jun 24, 2018 02:07
[2018-06-23 18:23] LABS: BASO % 1 % (0-3); EOS % 1 % (0-3); HEMATOCRIT 37.8 % (36.0-47.0); HEMOGLOBIN 12.6 g/dL (12.0-15.5); LYMPH # 1.7 x10^3/uL (1.0-4.8); LYMPH % 39 % (24-48); MEAN CORPUSCULAR HEMOGLOBIN 30 pg (25-35); MEAN CORPUSCULAR HGB CONC 33 g/dL (31-37); MEAN CORPUSCULAR VOLUME 90 fL (79-100); MONO # 0.4 x10^3/uL (0.0-1.1); MONO % 9 % (0-9); NEUT # 2.2 x10^3uL (1.8-7.7); NEUT % 51 % (31-73); PLATELET COUNT 202 x10^3/uL (140-400); RED CELL DISTRIBUTION WIDTH 12.9 % (11.5-14.5); WHITE BLOOD COUNT 4.3 x10^3/uL (4.0-11.0)
[2018-06-23 18:30] LABS: ALBUMIN 3.3 g/dL (3.4-5.0); ALBUMIN/GLOBULIN RATIO 0.9 (1.0-1.7); BARBITURATES NEG (NEG); BENZODIAZEPINES NEG (NEG); CALCIUM 9.2 mg/dL (8.5-10.1); CANNABINOIDS NEG (NEG); COCAINE NEG (NEG); CREATININE 0.8 mg/dL (0.6-1.0); METHADONE NEG (NEG); OPIATES NEG (NEG); PHENCYCLIDINE NEG (NEG); POTASSIUM 3.4 mmol/L (3.5-5.1); TOTAL BILIRUBIN 0.5 mg/dL (0.2-1.0)
[2018-06-23] MEDS ORDERED: cloNIDine TTS-2 1 PATCH PATCH TD ONE (18:30)
[2018-06-23 18:31] LABS: AMPHETAMINE/METHAMPHETAMINE NEG (NEG)
[2018-06-23 19:00] LABS: BACTERIA,URINE MOD /HPF (0-FEW); BILIRUBIN,URINE NEG (NEG); CLARITY,URINE CLOUDY; COLOR,URINE YELLOW; GLUCOSE,URINE NEG (NEG); NITRITE,URINE NEG (NEG); SQUAMOUS EPITHELIAL CELL,UR MOD /LPF; UROBILINOGEN,URINE 0.2 mg/dL (0.2 mg/dL)
[2018-06-23] MEDS ORDERED: KETOROLAC 30 MG/ML VIAL. IV ONE (19:00)
== END 2018-06-23 19:17 | disposition home or self-care (01) ==
LOC: ER 16:52
DX: I10 Essential (primary) hypertension (principal); G43.909 Migraine, unspecified, not intractable, without status migrainosus; I48.91 Unspecified atrial fibrillation; M79.7 Fibromyalgia; Z98.84 Bariatric surgery status; Z91.041 Radiographic dye allergy status; Z88.2 Allergy status to sulfonamides
CPT/HCPCS: 36415; 70450; 80053; 80307; 81001; 84484; 85025; 87086; 93005; 99284

== ENCOUNTER 2019-02-20 16:13 | Emergency (ER) | payer MEDICAID, OTHER ==
[~2019-02-20] VITALS: Ht 160 cm; Wt 120.6 kg
[~2019-02-20 16:13] MED LIST changes: -MONT10TA6 PO; +MONT10TA80 PO; +OMEP40CA45 PO; -OMEP40CA5 PO; +RANI-376 PO; -RANI150T21 PO; -TIZA4TAB PO; +TIZA4TAB2 PO
[2019-02-20 16:21] VITALS: BP 130/80
[2019-02-20] MEDS ORDERED: IV NORMAL SALINE 1,000ML 1,000 ML IV ONE (16:30)
[2019-02-20 16:39] LABS: BASO % 1 % (0-3); EOS % 0 % (0-3); HEMATOCRIT 41.9 % (36.0-47.0); HEMOGLOBIN 13.7 g/dL (12.0-15.5); LYMPH # 1.8 x10^3/uL (1.0-4.8); LYMPH % 34 % (24-48); MEAN CORPUSCULAR HEMOGLOBIN 31 pg (25-35); MEAN CORPUSCULAR HGB CONC 33 g/dL (31-37); MEAN CORPUSCULAR VOLUME 94 fL (79-100); MONO # 0.4 x10^3/uL (0.0-1.1); MONO % 7 % (0-9); NEUT % 57 % (31-73); PLATELET COUNT 221 x10^3/uL (140-400); RED BLOOD COUNT 4.44 x10^6/uL (3.50-5.40); RED CELL DISTRIBUTION WIDTH 13.9 % (11.5-14.5); WHITE BLOOD COUNT 5.3 x10^3/uL (4.0-11.0)
[2019-02-20] MEDS ORDERED: ONDANSETRON PF 4 MG/2 ML VIAL. ONE (16:39)
[2019-02-20] MEDS ORDERED: ONDANSETRON PF 4 MG/2 ML VIAL. IVP ONE (16:45)
--- NOTE | 2019-02-20 16:48 | RAD ---
CHEST AP ONLY History: Dizziness Comparison: November 14, 2017. Findings: No consolidation or pleural effusion. Normal heart size. Mild elevation of the right hemidiaphragm. Impression: 1. No acute cardiopulmonary process. Electronically signed by: Miguelangel Hunter DO (02/20/2019 4:45 PM) [facility]
--- NOTE | 2019-02-20 16:51 | ED.ADGEN ---
Past History Past Medical History: Arrhythmia Past Surgical History: Hysterectomy Smoking: Non-smoker Alcohol Use: None Drug Use: None Adult General Chief Complaint Chief Complaint Dizziness lightheadedness. HPI HPI Patient is a [43-year-old female history of valvular heart disease and tachyarrhythmia who presents with dizziness and lightheadedness while at work. 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 She felt tingling all extremities nauseated and as though she would pass out. Symptoms lasted upwards of an hour prior to contacting EMS. On EMS arrival, the patient was noted to be bradycardic with heart rate the mid 40s. Patient states she had a similar episode 2 days ago which lasted proximally 1 hour. Patient did not seek medical attention at that time. On ED arrival, the patient's heart rate and cerebral ranging from the 30s to the 90s. Patient's currently on low dose of Coreg which she is been on for approximately the past 2 years. No recent illnesses. Denies fever chills, chest pain, abdominal pain. No vomiting or diarrhea. No other acute symptoms or complaints. 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 Current Medications Current Medications Current Medications Medications (Trade) Dose Ordered Sig/Donna Start Time Stop Time Status Last Admin Dose Admin Ondansetron HCl (Zofran) 4 mg STK-MED ONCE 02/20/19 16:39 02/20/19 16:39 DC Sodium Chloride 1,000 ml @ 1,000 mls/hr 1X ONCE 02/20/19 16:30 02/20/19 17:29 02/20/19 16:30 1,000 MLS/HR Allergies Allergies Allergies Coded Allergies Type Severity Reaction Last Updated Verified Iodinated Contrast- Oral and IV Dye Allergy Intermediate 03/26/15 Yes Sulfa (Sulfonamide Antibiotics) Allergy Intermediate 11/15/17 Yes Physical Exam Physical Exam Constitutional: Well developed, well nourished, no acute distress, non-toxic appearance. [] HENT: Normocephalic, atraumatic, bilateral external ears normal, oropharynx moist, nose normal. [] Eyes: PERRLA, EOMI, conjunctiva normal. [] Neck: Normal range of motion, no tenderness, supple, no stridor. [] Cardiovascular: Regular irregular rhythm. [] Lungs & Thorax: Bilateral breath sounds clear to auscultation [] Abdomen: Bowel sounds normal, soft, no tenderness. [] Skin: Warm, dry, no erythema, no rash. [] Back: No tenderness. [] Extremities: No tenderness, no cyanosis, no clubbing, ROM intact, no edema. [] Neurologic: Alert and oriented X 3, normal motor function, normal sensory function, no focal deficits noted. [] Psychologic: Affect normal, judgement normal, mood normal. [] Current Patient Data Vital Signs Vital Signs Date Time Temp Pulse Resp B/P (MAP) Pulse Ox O2 Delivery O2 Flow Rate FiO2 02/20/19 16:21 50 18 97 Room Air EKG EKG [EKG: Sinus bradycardia, rate 50s.] Radiology/Procedures Radiology/Procedures [Chest x-ray: No acute cardiopulmonary disease.] Course & Med Decision Making Course & Med Decision Making Pertinent Labs and Imaging studies reviewed. (See chart for details) [Symptomatic bradycardia with standing. Heart rate in 30s and 40s with bursts into the 90's. Blood pressure stable while sitting. Lab drawn and pending, imaging EKG reviewed. Case discussed with Dr. Go who recommends transfer to [facility]. Dr. Bird to admit] Final Impression Final Impression [1. Symptomatic bradycardia 2. Palpitations] Dragon Disclaimer Dragon Disclaimer This electronic medical record was generated, in whole or in part, using a voice recognition dictation system. JALEN WHITNEY DO Feb 20, 2019 16:50
[2019-02-20 17:45] LABS: ALBUMIN 3.2 g/dL (3.4-5.0); ALBUMIN/GLOBULIN RATIO 0.9 (1.0-1.7); CALCIUM 8.3 mg/dL (8.5-10.1); CREATININE 0.8 mg/dL (0.6-1.0); MAGNESIUM 2.1 mg/dL (1.8-2.4); POTASSIUM 4.2 mmol/L (3.5-5.1); TOTAL BILIRUBIN 0.2 mg/dL (0.2-1.0); TOTAL PROTEIN 6.6 g/dL (6.4-8.2)
--- NOTE | 2019-02-21 02:25 | EKG ---
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
== END 2019-02-20 19:57 | disposition short-term general hospital (02) ==
LOC: ER 16:13
DX: R00.1 Bradycardia, unspecified (principal); R00.2 Palpitations; Z88.2 Allergy status to sulfonamides; Z91.041 Radiographic dye allergy status
CPT/HCPCS: 36415; 71045; 80053; 83735; 83880; 84443; 84484; 85025; 93005; 96361; 96374; 99285; J2405; J7030

== ENCOUNTER 2019-03-10 16:40 | Emergency (ER) | payer MEDICAID ==
[~2019-03-10] VITALS: Ht 160 cm; Wt 120.6 kg
[~2019-03-10 16:40] MED LIST changes: +TRAZ-125 PO; -TRAZ-86 PO
[2019-03-10] MEDS ORDERED: IV NORMAL SALINE 1,000ML 1,000 ML IV ONE (17:15)
[2019-03-10 17:26] LABS: CALCIUM 9.4 mg/dL (8.5-10.1); CREATININE 0.7 mg/dL (0.6-1.0); GFR 92.2; POTASSIUM 3.4 mmol/L (3.5-5.1); TOTAL BILIRUBIN 0.4 mg/dL (0.2-1.0)
[2019-03-10 17:30] VITALS: BP 138/88
[2019-03-10 18:08] LABS: BASO % 0 % (0-3); EOS % 0 % (0-3); HEMATOCRIT 39.6 % (36.0-47.0); HEMOGLOBIN 12.6 g/dL (12.0-15.5); LYMPH # 0.9 x10^3/uL (1.0-4.8); LYMPH % 13 % (24-48); MEAN CORPUSCULAR HEMOGLOBIN 31 pg (25-35); MEAN CORPUSCULAR HGB CONC 32 g/dL (31-37); MEAN CORPUSCULAR VOLUME 98 fL (79-100); MONO # 0.5 x10^3/uL (0.0-1.1); MONO % 7 % (0-9); NEUT # 5.2 x10^3uL (1.8-7.7); NEUT % 79 % (31-73); PLATELET COUNT 202 x10^3/uL (140-400); RED BLOOD COUNT 4.06 x10^6/uL (3.50-5.40); RED CELL DISTRIBUTION WIDTH 13.9 % (11.5-14.5); WHITE BLOOD COUNT 6.6 x10^3/uL (4.0-11.0)
[2019-03-10] MEDS ORDERED: DIAZ5TAB PO (18:12)
--- NOTE | 2019-03-10 18:14 | PHYS DOC ---
Past History Past Medical History: Arrhythmia Past Surgical History: Hysterectomy Smoking: Non-smoker Alcohol Use: None Drug Use: None Adult General Chief Complaint Chief Complaint: CHEST PAIN HPI HPI Patient is a 43-year-old female who presents with chest discomfort and near syncope. She states she also had tingling around her mouth and hands and her lower extremities. She states is similar symptoms happened back on Halloween and she was admitted to the hospital and supposed to have a Holter monitor placed at some point in the near future.[] Review of Systems Review of Systems Constitutional: Denies fever or chills [] Eyes: Denies change in visual acuity, redness, or eye pain [] HENT: Denies nasal congestion or sore throat [] Respiratory: Denies cough or shortness of breath [] Cardiovascular: No additional information not addressed in HPI [] GI: Denies abdominal pain, nausea, vomiting, bloody stools or diarrhea [] : Denies dysuria or hematuria [] Musculoskeletal: Denies back pain or joint pain [] Integument: Denies rash or skin lesions [] Neurologic: Numbness and tingling as described in the history of present illness[] Endocrine: Denies polyuria or polydipsia [] All other systems were reviewed and found to be within normal limits, except as documented in this note. Current Medications Current Medications Current Medications Medications (Trade) Dose Ordered Sig/Donna Start Time Stop Time Status Last Admin Dose Admin Sodium Chloride 1,000 ml @ 1,000 mls/hr 1X ONCE 03/10/19 17:15 03/10/19 18:14 Allergies Allergies Allergies Coded Allergies Type Severity Reaction Last Updated Verified Iodinated Contrast- Oral and IV Dye Allergy Intermediate 03/26/15 Yes Sulfa (Sulfonamide Antibiotics) Allergy Intermediate 11/15/17 Yes Physical Exam Physical Exam Constitutional: Well developed, well nourished, no acute distress, non-toxic appearance. [] HENT: Normocephalic, atraumatic, bilateral external ears normal, oropharynx moist, no oral exudates, nose normal. [] Eyes: PERRLA, EOMI, conjunctiva normal, no discharge. [] Neck: Normal range of motion, no tenderness, supple, no stridor. [] Cardiovascular:Heart rate regular rhythm, no murmur [] Lungs & Thorax: Bilateral breath sounds clear to auscultation [] Abdomen: Bowel sounds normal, soft, no tenderness, no masses, no pulsatile masses. [] Skin: Warm, dry, no erythema, no rash. [] Back: No tenderness, no CVA tenderness. [] Extremities: No tenderness, no cyanosis, no clubbing, ROM intact, no edema. [] Neurologic: Alert and oriented X 3, normal motor function, normal sensory function, no focal deficits noted. [] Psychologic: Affect normal, judgement normal, mood normal. [] Current Patient Data Vital Signs Vital Signs Date Time Temp Pulse Resp B/P (MAP) Pulse Ox O2 Delivery O2 Flow Rate FiO2 03/10/19 17:30 63 16 138/88 (105) 98 Room Air 03/10/19 16:48 97.9 Lab Results Laboratory Tests Test 03/10/19 16:34 Sodium Level 139 mmol/L (136-145) Potassium Level 3.4 mmol/L (3.5-5.1) L Chloride Level 105 mmol/L (98-107) Carbon Dioxide Level 22 mmol/L (21-32) Anion Gap 12 (6-14) Blood Urea Nitrogen 13 mg/dL (7-20) Creatinine 0.7 mg/dL (0.6-1.0) Estimated GFR (Cockcroft-Gault) 92.2 BUN/Creatinine Ratio 19 (6-20) Glucose Level 102 mg/dL (70-99) H Calcium Level 9.4 mg/dL (8.5-10.1) Total Bilirubin 0.4 mg/dL (0.2-1.0) Aspartate Amino Transferase (AST) 21 U/L (15-37) Alanine Aminotransferase (ALT) 21 U/L (14-59) Alkaline Phosphatase 129 U/L (46-116) H Troponin I Quantitative < 0.017 ng/mL (0-0.055) Total Protein 8.0 g/dL (6.4-8.2) Albumin 4.0 g/dL (3.4-5.0) Albumin/Globulin Ratio 1.0 (1.0-1.7) EKG EKG [EKG: Normal sinus rhythm rate of [address]-T changes] Radiology/Procedures Radiology/Procedures [] Course & Med Decision Making Course & Med Decision Making Pertinent Labs and Imaging studies reviewed. (See chart for details) [ED course: Evaluation reveals a 43-year-old extremely anxious female who is continuing to hyperventilate. When I explained that I felt that her symptoms are related to anxiety she became even more anxious. I did give her benzodiazepine during her stay in the department to help with her symptoms. I've informed her that she'll need to follow with her primary care physician in the near future she is safe for discharge home.] Dragon Disclaimer Dragon Disclaimer This electronic medical record was generated, in whole or in part, using a voice recognition dictation system. Departure Departure: Impression: Primary Impression: Atypical chest pain Additional Impression: Anxiety hyperventilation Disposition: HOME, SELF-CARE Condition: STABLE Referrals: REBEL PINA (PCP) Patient Instructions: Anxiety and Panic Attacks, Chest Pain (Nonspecific), Hyperventilation Additional Instructions: Follow with your primary care physician this week for recheck. Return to the emergency department with any new or concerning symptoms Scripts Diazepam (VALIUM) 5 Mg Tablet 5 MG PO Q8HRS for anxiety, #10 TAB Prov: TAMANNA SALEH DO 03/10/19 Problem Qualifiers TAMANNA SALEH DO Mar 10, 2019 18:14
--- NOTE | 2019-03-11 03:06 | EKG ---
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
== END 2019-03-10 18:38 | disposition home or self-care (01) ==
LOC: ER 16:40
DX: F41.9 Anxiety disorder, unspecified (principal); R07.89 Other chest pain; R06.4 Hyperventilation; Z88.2 Allergy status to sulfonamides; Z91.041 Radiographic dye allergy status
CPT/HCPCS: 36415; 80053; 84484; 85025; 93005; 99285

== ENCOUNTER 2019-03-31 16:36 | Observation (INO) | payer MEDICAID ==
[~2019-03-31] VITALS: Ht 160 cm; Wt 120.6 kg
[~2019-03-31 16:36] MED LIST changes: +DIAZ5TAB PO
[2019-03-31] MEDS ORDERED: ASPIRIN 81 MG TAB.CHEW PO ONE ×2 (17:15→19:00)
[2019-03-31 17:29] LABS: BASO % 1 % (0-3); EOS % 1 % (0-3); HEMATOCRIT 41.4 % (36.0-47.0); HEMOGLOBIN 13.4 g/dL (12.0-15.5); LYMPH # 0.7 x10^3/uL (1.0-4.8); LYMPH % 19 % (24-48); MEAN CORPUSCULAR HEMOGLOBIN 31 pg (25-35); MEAN CORPUSCULAR HGB CONC 32 g/dL (31-37); MEAN CORPUSCULAR VOLUME 95 fL (79-100); MONO # 0.3 x10^3/uL (0.0-1.1); MONO % 9 % (0-9); NEUT # 2.7 x10^3uL (1.8-7.7); NEUT % 71 % (31-73); PLATELET COUNT 182 x10^3/uL (140-400); RED BLOOD COUNT 4.37 x10^6/uL (3.50-5.40); RED CELL DISTRIBUTION WIDTH 12.8 % (11.5-14.5); WHITE BLOOD COUNT 3.8 x10^3/uL (4.0-11.0)
[2019-03-31 17:43] LABS: ALBUMIN 3.6 g/dL (3.4-5.0); CALCIUM 9.1 mg/dL (8.5-10.1); CREATININE 0.8 mg/dL (0.6-1.0); POTASSIUM 3.7 mmol/L (3.5-5.1); TOTAL BILIRUBIN 0.4 mg/dL (0.2-1.0); TOTAL PROTEIN 7.1 g/dL (6.4-8.2)
--- NOTE | 2019-03-31 17:45 | PHYS DOC ---
Past History Past Medical History: Anxiety, Arrhythmia, Asthma, Fibromyalgia, Migraines (SILVINO NICOLE MD) Past Surgical History: Hysterectomy (SILVINO NICOLE MD) Smoking: Non-smoker Alcohol Use: None Drug Use: None (SILVINO NICOLE MD) Adult General Chief Complaint Chief Complaint: ANXIETY/PANIC ATTACK HPI HPI Patient is a 43-year-old female brought in by ambulance with shortness of breath patient has a history of apparently depression fibromyalgia she was admitted at the end of January due to symptomatically bradycardia apparently was on carvedilol for hypertension and heart rate did dip down around 40 she was observed in the emergency room and in the hospital over at [place] at a cardiology consultation she is currently wearing a Holter monitor. She was seen in the ER March 10 she had basically what sounded most like a panic attack she had negative troponin at that time and was discharged in stable condition today she was at work at [employer] and she said she began to have fairly sudden onset of shortness of breath chest heaviness like an elephant was sitting on her chest she had tingling of her arms and legs all 4 of them at the same time as by lateral perioral area as well she thought she would pass out but she didn't do so she felt sweaty. She said she thought her heart was racing she said it was going crazy all over the place (SILVINO NICOLE MD) Review of Systems Review of Systems Constitutional: Denies fever or chills [] Eyes: Denies change in visual acuity, redness, or eye pain [] HENT: Denies nasal congestion or sore throat [] Neurologic: Denies headache, focal weakness or sensory changes [] ] All other systems were reviewed and found to be within normal limits, except as documented in this note. (SILVINO NICOLE MD) Current Medications Current Medications Current Medications Medications (Trade) Dose Ordered Sig/Donna Start Time Stop Time Status Last Admin Dose Admin Aspirin (Children'S Aspirin) 324 mg 1X ONCE 03/31/19 17:15 03/31/19 17:16 DC 03/31/19 17:26 324 MG (SILVINO NICOLE MD) Allergies Allergies Allergies Coded Allergies Type Severity Reaction Last Updated Verified Iodinated Contrast- Oral and IV Dye Allergy Intermediate 03/26/15 Yes Sulfa (Sulfonamide Antibiotics) Allergy Intermediate 11/15/17 Yes (SILVINO NICOLE MD) Physical Exam Physical Exam Constitutional: Well developed, well nourished, no acute distress, non-toxic appearance. [] HENT: Normocephalic, atraumatic, bilateral external ears normal, oropharynx moist, no oral exudates, nose normal. [] Eyes: PERRLA, EOMI, conjunctiva normal, no discharge. [] Neck: Normal range of motion, no tenderness, supple, no stridor. [] Cardiovascular:Heart rate regular rhythm, no murmur [] Lungs & Thorax: Bilateral breath sounds clear to auscultation [] Abdomen: Bowel sounds normal, soft, no tenderness, no masses, no pulsatile masses. [] Skin: Warm, dry, no erythema, no rash. [] Back: No tenderness, no CVA tenderness. [] Extremities: No tenderness, no cyanosis, no clubbing, ROM intact, no edema. [] Neurologic: Alert and oriented X 3, normal motor function, normal sensory function, no focal deficits noted. [] Psychologic: Affect normal, judgement normal, mood normal. [] (SILVINO NICOLE MD) Current Patient Data Vital Signs Vital Signs Date Time Temp Pulse Resp B/P (MAP) Pulse Ox O2 Delivery O2 Flow Rate FiO2 03/31/19 16:40 68 16 99 Room Air 03/31/19 16:36 126/84 (98) Lab Results Laboratory Tests Test 03/31/19 17:10 White Blood Count 3.8 x10^3/uL (4.0-11.0) L Red Blood Count 4.37 x10^6/uL (3.50-5.40) Hemoglobin 13.4 g/dL (12.0-15.5) Hematocrit 41.4 % (36.0-47.0) Mean Corpuscular Volume 95 fL (79-100) Mean Corpuscular Hemoglobin 31 pg (25-35) Mean Corpuscular Hemoglobin Concent 32 g/dL (31-37) Red Cell Distribution Width 12.8 % (11.5-14.5) Platelet Count 182 x10^3/uL (140-400) Neutrophils (%) (Auto) 71 % (31-73) Lymphocytes (%) (Auto) 19 % (24-48) L Monocytes (%) (Auto) 9 % (0-9) Eosinophils (%) (Auto) 1 % (0-3) Basophils (%) (Auto) 1 % (0-3) Neutrophils # (Auto) 2.7 x10^3uL (1.8-7.7) Lymphocytes # (Auto) 0.7 x10^3/uL (1.0-4.8) L Monocytes # (Auto) 0.3 x10^3/uL (0.0-1.1) Eosinophils # (Auto) 0.0 x10^3/uL (0.0-0.7) Basophils # (Auto) 0.0 x10^3/uL (0.0-0.2) (SILVINO NICOLE MD) EKG EKG []EKG shows a normal sinus rhythm with rate of 61 there are no acute ischemic changes noted there is some nonspecific changes laterally there is a QTC of 510 which of note was actually present on the previous EKG as well (SILVINO NICOLE MD) Radiology/Procedures Radiology/Procedures [] Impressions: Chest x-ray negative acute (SILVINO NICOLE MD) Course & Med Decision Making Course & Med Decision Making Pertinent Labs and Imaging studies reviewed. (See chart for details) []43-year-old female with history of fibromyalgia psychiatric history depression etc. presenting with what sounds probably like a panic attack however patient does have some cardiac risk factors she is obese she does have a family history of heart attack apparently her father had a heart attack in his 60s she does have a history of hypertension. I think 2 troponins are reasonable care will be signed over to Dr. Wells for further management and observation heart score is a h 0 e 0 a 0 r 2 t pending. 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 Hx. of Cardiac Stress test 2 yrs [facility]- reported had some CAD, but did not require stent. Pt. has multiple family members with CADz, Mother D/C MA, Father-CADz and Stroke, and Aunt MA age 30. Discussed options with pt. Pt. elects to be admitted and serial checks Trop. and EKG. Pt. Admitted to Dr. Whitlock with cardiology consult. Heart score 3- 4. Impression: 1. Chest Pain- 2. Anxiety & Panic Attacks 3. Alk Phos 126. 4. Hx. of Fibromyalgia (BRYAN WELLS MD) Dragon Disclaimer Dragon Disclaimer This electronic medical record was generated, in whole or in part, using a voice recognition dictation system. (SILVINO NICOLE MD) Departure Departure: Disposition: 01 HOME/RESIDENCE PRIOR TO ADM Condition: STABLE Referrals: REBEL PINA (PCP) Dragon Disclaimer This chart was dictated in whole or in part using Voice Recognition software in a busy, high-work load, and often noisy Emergency Department environment. It may contain unintended and wholly unrecognized errors or omissions. (BRYAN WELLS MD) Dragon Disclaimer This chart was dictated in whole or in part using Voice Recognition software in a busy, high-work load, and often noisy Emergency Department environment. It may contain unintended and wholly unrecognized errors or omissions. (SILVINO NICOLE MD) Dragon Disclaimer This chart was dictated in whole or in part using Voice Recognition software in a busy, high-work load, and often noisy Emergency Department environment. It may contain unintended and wholly unrecognized errors or omissions. (BRYAN WELLS MD) Dragon Disclaimer This chart was dictated in whole or in part using Voice Recognition software in a busy, high-work load, and often noisy Emergency Department environment. It may contain unintended and wholly unrecognized errors or omissions. (SILVINO NICOLE MD) SILVINO NICOLE MD Mar 31, 2019 17:45 BRYAN WELLS MD Mar 31, 2019 18:44
--- NOTE | 2019-03-31 18:21 | RAD ---
Study: CHEST AP ONLY Indication: Shortness of breath. Comparison: 02/20/2019. Findings: Unchanged prominence of the cardiomediastinal silhouette. No overt central vascular congestion. More pronounced asymmetric elevation of the right hemidiaphragm from the prior. No large effusion, pneumothorax or lobar infiltrate. Impression: Unchanged prominence of the cardiomediastinal silhouette without findings of overt failure. Slightly more pronounced asymmetric elevation of the right hemidiaphragm from the prior. No lobar consolidation or pneumothorax. Electronically signed by: AMARILYS GALLAGHER MD (03/31/2019 6:18 PM) [facility]
[2019-03-31] MEDS ORDERED: FAMOTIDINE 20 MG/2 ML VIAL IVP ONE (18:30)
[2019-03-31] MEDS ORDERED: FAMOTIDINE 20 MG TABLET PO ONE (18:45)
[2019-03-31] MEDS ORDERED: MORPHINE SULFATE 2 MG/ML DISP.SYRIN. IV PRN (18:45)
[2019-03-31] MEDS ORDERED: ACETAMINOPHEN 325 MG TABLET PO PRN (18:45)
[2019-03-31] MEDS ORDERED: ONDANSETRON PF 4 MG/2 ML VIAL. IV PRN (18:45)
[2019-03-31] MEDS ORDERED: ENOXAPARIN ** NOTE DOSE ** SYRINGE SQ ONE (19:00)
[2019-03-31] MEDS: IPRATRPIUM/ALBUTEROL 0.5/2.5MG 3 ML NEBU. NEB SCH (20:00)
[2019-03-31 21:32] VITALS: BP 139/96
[2019-03-31 23:24] VITALS: BP 127/85
[2019-04-01] MEDS: IPRATRPIUM/ALBUTEROL 0.5/2.5MG 3 ML NEBU. NEB SCH ×2 (05:21→11:36)
[2019-04-01 06:10] VITALS: BP 129/61
[2019-04-01 07:15] LABS: BASO % 1 % (0-3); EOS % 1 % (0-3); HEMATOCRIT 36.7 % (36.0-47.0); LYMPH # 1.7 x10^3/uL (1.0-4.8); LYMPH % 50 % (24-48); MEAN CORPUSCULAR HEMOGLOBIN 31 pg (25-35); MEAN CORPUSCULAR HGB CONC 33 g/dL (31-37); MEAN CORPUSCULAR VOLUME 93 fL (79-100); MONO # 0.3 x10^3/uL (0.0-1.1); MONO % 9 % (0-9); NEUT # 1.3 x10^3uL (1.8-7.7); NEUT % 39 % (31-73); PLATELET COUNT 165 x10^3/uL (140-400); RED BLOOD COUNT 3.93 x10^6/uL (3.50-5.40); RED CELL DISTRIBUTION WIDTH 12.9 % (11.5-14.5); WHITE BLOOD COUNT 3.4 x10^3/uL (4.0-11.0)
[2019-04-01 07:28] LABS: CALCIUM 8.3 mg/dL (8.5-10.1); CREATININE 0.7 mg/dL (0.6-1.0); GFR 92.2
[2019-04-01 07:31] LABS: POTASSIUM 2.8 mmol/L (3.5-5.1)
[2019-04-01 07:49] LABS: % ATYL 2 % (0-0); % BANDS 1 % (0-9); % BASOS 1 % (0-3); % LYMPHS 52 % (24-48); % MONOS 8 % (0-10); % SEGS 36 % (35-66)
[2019-04-01 07:50] LABS: PLT ESTIMATE ADEQUATE (ADEQUATE)
[2019-04-01] MEDS: POTASSIUM BICARB 20 MEQ EFFERVESCENT TABLET. FT SCH ×2 (08:17→13:13)
[2019-04-01] MEDS ORDERED: ENOXAPARIN ** NOTE DOSE ** SYRINGE SQ SCH (09:00)
[2019-04-01 11:07] VITALS: BP 115/73
--- NOTE | 2019-04-01 13:29 | HP ---
ADMIT DATE: 03/31/2019 HISTORY OF PRESENT ILLNESS: The patient is a 43-year-old female patient, who was brought to the Emergency Room with shortness of breath. She also complained of recurrent bouts of nausea, but no vomiting. Yesterday, she has also multiple loose bowel movements and she has chest pain that comes and goes, mostly retrosternal reproducible by palpation and also by taking a deep breath. She was evaluated in the Emergency Room and her white cell count was normal. Her first set of cardiac enzymes showed troponin to be less than 0.017. However, D-dimer was high at 0.83 and she was started on Lovenox 120 mg subcutaneous twice a day. Her chest x-ray apparently showed that she has unchanged prominence of the cardiomediastinal silhouette, no overt central vascular congestion, more pronounced symmetrical elevation of the right hemidiaphragm from the prior. No large effusion, pneumothorax, lobar infiltrate. The patient was admitted to do 2 more sets of cardiac enzyme. She is allergic to ORAL AND IV CONTRAST DYE. We will arrange for her to have V/Q scan given that chest pain is aggravated by taking a deep breath. PAST MEDICAL HISTORY: Significant for fibromyalgia, degenerative disk disease, bronchial asthma, hypertension, osteoarthritis. PAST SURGICAL HISTORY: Significant for , gastric bypass surgery done about 4 years ago, cholecystectomy, carpal tunnel release and ulnar nerve release on the left side. ALLERGIES: SHE IS ALLERGIC TO IODINATED CONTRAST, ORAL OR IV AND SULFA DRUGS. MEDICATIONS: She is currently on albuterol sulfate 1 puff 4 times a day, tizanidine 4-8 mg twice a day, carvedilol 3.125 mg twice a day, spironolactone 50 mg p.o. b.i.d., topiramate 50 mg twice a day, citalopram hydrobromide 10 mg daily, duloxetine 60 mg daily, trazodone 300 mg at bedtime, alprazolam 0.5 mg twice a day, diazepam 5 mg every 8 hours, Flovent 110 mcg 2 puffs twice a day, Singulair tablet 10 mg at bedtime, cyclosporine for Restasis 1 drop to both eyes twice a day, ondansetron 4 mg every 6 hours, ranitidine 150 mg twice a day, omeprazole 40 mg daily, lactobacillus Casei, folic acid, Restora 1 capsule daily. FAMILY HISTORY: She has one brother older at age of 46 and apparently healthy. Her father is still alive in his 60s and has a cerebrovascular accident. Mother at age of 64 because of breast cancer. SOCIAL HISTORY: She is , has 1 son and 1 daughter. She never smoked, does not drink alcohol or use recreational drugs. 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 REVIEW OF SYSTEMS: The patient denied any blurring of vision, cataract, glaucoma or macular degeneration. Denied any earache, tinnitus or sensorineural deafness. Denied any nosebleeds, stuffy nose or postnasal drip. Denied any sore throat, sore tongue, toothache, hoarseness of voice or difficulty swallowing. Did have some nausea, but no vomiting. She has also loose bowel movement. Denied any hematemesis, melena or hematochezia. Denied any dysuria, frequency or hematuria. Did complain of chest pain, mostly retrosternal, comes and goes, associated with nausea, but no vomiting. She has also complained of shortness of breath. The pain is aggravated by taking a deep breath and reproducible by palpation. Denied any dizziness, lightheadedness, or vertigo. PHYSICAL EXAMINATION: GENERAL: When I examined her, she looked well and was clearly in no apparent respiratory distress. No pallor, jaundice, cyanosis or thyromegaly. No jugular venous distention. No limb edema. VITAL SIGNS: Her heart rate was 68, blood pressure was 126/84, temperature was 97.8, respiratory rate was 18, and oxygen saturation was 100%. HEAD, EYES, EARS, NOSE AND THROAT: Showed normocephalic, atraumatic. NECK: Supple. HEART: Showed normal first and second heart sounds with no gallop or murmur. CHEST: Showed central trachea. Palpation of the sternum reproduces the pain. She has equal bilateral chest expansion, air entry, vesicular sounds. No crepitation or rhonchi. ABDOMEN: Distended, soft, nontender. No guarding or rigidity. No organomegaly. All hernial orifice intact. Bowel sounds normal. NEUROLOGIC: She was awake, alert, responding appropriately. All cranial nerves intact. EXTREMITIES: She moves extremities without difficulty. She ambulates without assistance or assistive devices. LABORATORY DATA: Showed a white cell count of 3800, hemoglobin 13.4, hematocrit 41, MCV 95, and platelet count of 182,000 with normal manual differential. Her aPTT was 24. D-dimer was 0.83 mg/dL. Her chemistry showed a serum sodium 141, potassium 3.7, chloride 107, bicarbonate 23, anion gap of 11, BUN 12, creatinine 0.8, estimated GFR was 79 mL per minute. Her glucose was 83, calcium was 9.1, magnesium 2. Total bilirubin, AST and ALT normal. Alkaline phosphatase was slightly elevated. Total protein was 7.1, albumin was 3.6. Her chest x-ray showed more pronounced symmetric elevation of the right hemidiaphragm from the prior. No large effusion, pneumothorax or lobar infiltrate. The patient's first set of cardiac enzymes showed troponin to be less than 0.17 and her EKG showed that she was in normal sinus rhythm with a rate of 61. There are no acute ischemic changes. There are nonspecific changes laterally with a corrected QT interval of 510 which of note was actually present on previous EKGs as well. We will do 2 more sets of cardiac enzymes. ASSESSMENT AND PLAN: Apparently, the patient is known to the Cardiology team. She was admitted at the end of January due to symptomatic bradycardia. At that time, she was on carvedilol for hypertension and heart rate did drop down to around 40. She is now currently wearing a Holter monitor to be observed. Her last admission on 03/10/2019, she had what sounded most likely panic attack and had had a negative troponin at that time and was discharged in stable condition. JHON TAVERAS MD DR: CATA/bear JOB#: [id number] / [id number]
--- NOTE | 2019-04-01 14:39 | RAD ---
Study: NUCLEAR MEDICINE VENTILATION/PERFUSION SCAN History: Chest pain. Elevated d-dimer. Contrast allergy. Comparison: 02/08/2014 Technique: Ventilation portion performed utilizing 11 mCi Xe-133 gas. Perfusion portion performed after intravenous administration of 5.5 mCi Technetium 99m MAA. Multiple projection planar images of the lungs were obtained for the perfusion portion of the study. Anterior and posterior planar images for the ventilation portion. Findings: Ventilation images: Symmetric and confluent radiotracer activity throughout both lungs at inspiration with progressive washout of radiotracer from equilibrium to the termination of imaging. Perfusion images: No localized perfusion defect. IMPRESSION: No mismatched defect. Low probability for pulmonary embolism. Electronically signed by: AMARILYS GALLAGHER MD (04/01/2019 2:36 PM) [facility]
[2019-04-01 14:55] VITALS: BP 119/80
[2019-04-01 15:52] LABS: ANION GAP 10 (6-14); BLOOD UREA NITROGEN 10 mg/dL (7-20); CALCIUM 7.2 mg/dL (8.5-10.1); CARBON DIOXIDE 22 mmol/L (21-32); CHLORIDE 109 mmol/L (98-107); GLUCOSE 78 mg/dL (70-99); POTASSIUM 4.2 mmol/L (3.5-5.1); SODIUM 141 mmol/L (136-145)
[2019-04-01 16:25] LABS: CREATININE < 0.2 mg/dL (0.6-1.0); GFR > 300.0
--- NOTE | 2019-04-02 12:39 | EKG ---
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
== END 2019-04-01 16:56 | disposition home or self-care (01) ==
LOC: ER 16:36 → INTOOBSV 19:23 → 1 SOUTH 19:23
PROVIDERS: ADMIT Internal Medicine; ATTEND Internal Medicine
DX: R07.89 Other chest pain (principal); F41.9 Anxiety disorder, unspecified; F41.0 Panic disorder [episodic paroxysmal anxiety]; M79.7 Fibromyalgia; I10 Essential (primary) hypertension; J45.909 Unspecified asthma, uncomplicated; R00.1 Bradycardia, unspecified; M19.90 Unspecified osteoarthritis, unspecified site; Z98.891 History of uterine scar from previous surgery; Z98.84 Bariatric surgery status; Z90.49 Acquired absence of other specified parts of digestive tract
CPT/HCPCS: 36415; 71045; 78582; 80048; 80053; 80061; 83735; 84484; 84702; 85007; 85025; 85379; 85730; 94640; 94760; 96372; 96374; 99284; A9540; A9558; G0238; G0378; G0379; J1650; J7620

== ENCOUNTER → 2019-04-19 | Outpatient (CLI) | payer MEDICAID ==
[2019-04-01 14:55] VITALS: BP 119/80
[~2019-04-19] MED LIST changes: +AMOX1TAB61 PO; +ONDA4TAB7 PO; +PRED20TA PO; +PRED50TA PO; -TRAZ-125 PO; +TRAZ-86 PO
--- NOTE | 2019-04-19 10:46 | RAD ---
EXAM: Chest, 2 views. HISTORY: Shortness of air. Cough. COMPARISON: 03/31/2019 FINDINGS: 2 views of the chest are obtained. There is no infiltrate, pleural effusion or pneumothorax. The heart is normal in size. IMPRESSION: No acute pulmonary finding. Electronically signed by: Amisha Donahue MD (04/19/2019 10:43 AM) [id number]
== END | disposition home or self-care (01) ==
LOC: PMG 10:16
PROVIDERS: ATTEND Registered Nurse
DX: R05 Cough (principal)
CPT/HCPCS: 71046

== ENCOUNTER 2019-04-21 20:21 | Emergency (ER) | payer MEDICAID ==
[~2019-04-21] VITALS: Ht 160 cm; Wt 104.2 kg
[~2019-04-21 20:21] MED LIST changes: -AMOX1TAB61 PO; -ONDA4TAB7 PO; -PRED20TA PO; -PRED50TA PO
[2019-04-21] MEDS ORDERED: PRED20TA PO (20:36)
[2019-04-21] MEDS ORDERED: AMOX1TAB61 PO (20:36)
--- NOTE | 2019-04-21 20:59 | PHYS DOC ---
Past History Past Medical History: Anxiety, Arrhythmia, Asthma, Fibromyalgia, Migraines Past Surgical History: Hysterectomy Smoking: Non-smoker Alcohol Use: None Drug Use: None Adult General Chief Complaint Chief Complaint: FLU SYMPTOM HPI HPI 43-year-old female presents with cough, congestion, fever, vomiting for the last few days. The patient was seen by another provider and was treated for a sinus infection. She is just finishing prednisone and Augmentin. Patient continues to have a fever of around 102 last 2 days and she is feeling worse overall. She has had multiple episodes of vomiting and feels dehydrated. She denies abdominal pain, diarrhea, chest pain, shortness of breath. Review of Systems Review of Systems Constitutional: Fever, body aches[] Eyes: Denies change in visual acuity, redness, or eye pain [] HENT: nasal congestion [] Respiratory: Cough without evidence of labs shortness of breath [] Cardiovascular: No additional information not addressed in HPI [] GI: nausea, vomiting. Denies abdominal pain, bloody stools or diarrhea [] : Denies dysuria or hematuria [] Musculoskeletal: Denies back pain or joint pain [] Integument: Denies rash or skin lesions [] Neurologic: Denies headache, focal weakness or sensory changes [] Endocrine: Denies polyuria or polydipsia [] All other systems were reviewed and found to be within normal limits, except as documented in this note. Current Medications Current Medications Current Medications Medications (Trade) Dose Ordered Sig/Donna Start Time Stop Time Status Last Admin Dose Admin Ondansetron HCl (Zofran) 4 mg 1X ONCE 04/21/19 21:00 04/21/19 21:01 UNV Sodium Chloride 1,000 ml @ 1,000 mls/hr 1X ONCE 04/21/19 21:00 04/21/19 21:59 UNV Allergies Allergies Allergies Coded Allergies Type Severity Reaction Last Updated Verified Iodinated Contrast Media Allergy Intermediate 04/21/19 Yes Sulfa (Sulfonamide Antibiotics) Allergy Intermediate 04/21/19 Yes Physical Exam Physical Exam Constitutional: Fever. Well developed, well nourished, no acute distress, non- toxic appearance. [] HENT: Normocephalic, atraumatic, bilateral external ears normal, oropharynx moist, no oral exudates, nose congested [] Eyes: PERRLA, EOMI, conjunctiva normal, no discharge. [] Neck: Normal range of motion, no tenderness, supple, no stridor. [] Cardiovascular:Heart rate regular rhythm, no murmur [] Lungs & Thorax: Bilateral breath sounds clear to auscultation [] Abdomen: Bowel sounds normal, soft, no tenderness, no masses, no pulsatile masses. [] Skin: Warm, dry, no erythema, no rash. [] Back: No tenderness, no CVA tenderness. [] Extremities: No tenderness, no cyanosis, no clubbing, ROM intact, no edema. [] Neurologic: Alert and oriented X 3, normal motor function, normal sensory function, no focal deficits noted. [] Psychologic: Affect normal, judgement normal, mood normal. [] EKG EKG [] Radiology/Procedures Radiology/Procedures [] Course & Med Decision Making Course & Med Decision Making Pertinent Labs and Imaging studies reviewed. (See chart for details) Patient's labs are essentially unremarkable. She is positive for influenza A. The patient is outside the window for Tamiflu, advised supportive care such as rest, plenty of fluids, fever management. She is stable for discharge at this time. [] Dragon Disclaimer Dragon Disclaimer This electronic medical record was generated, in whole or in part, using a voice recognition dictation system. Departure Departure: Impression: Primary Impression: Influenza A Disposition: 01 HOME, SELF-CARE Condition: STABLE Referrals: REBEL PINA (PCP) Patient Instructions: Influenza, Adult, [id number] JALEN JOHNSON DO Apr 21, 2019 20:59
[2019-04-21] MEDS ORDERED: IV NORMAL SALINE 1,000ML 1,000 ML IV ONE (21:00)
[2019-04-21] MEDS ORDERED: ONDANSETRON PF 4 MG/2 ML VIAL. IVP ONE (21:00)
[2019-04-21 21:20] LABS: INFLUENZA A PATIENT POSITIVE (NEGATIVE); INFLUENZA B PATIENT NEGATIVE (NEGATIVE)
[2019-04-21 22:21] LABS: BACTERIA,URINE 0 /HPF (0-FEW); BILIRUBIN,URINE NEG (NEG); CLARITY,URINE CLEAR; COLOR,URINE YELLOW; GLUCOSE,URINE NEG (NEG); NITRITE,URINE NEG (NEG); RBC,URINE OCC /HPF (0-2); SQUAMOUS EPITHELIAL CELL,UR FEW /LPF; UROBILINOGEN,URINE 0.2 mg/dL (0.2 mg/dL); WBC,URINE 0 /HPF (0-4)
[2019-04-21 22:25] LABS: BASO % 0 % (0-3); EOS % 0 % (0-3); HEMATOCRIT 35.7 % (36.0-47.0); HEMOGLOBIN 11.8 g/dL (12.0-15.5); LYMPH # 0.3 x10^3/uL (1.0-4.8); LYMPH % 10 % (24-48); MEAN CORPUSCULAR HEMOGLOBIN 31 pg (25-35); MEAN CORPUSCULAR HGB CONC 33 g/dL (31-37); MEAN CORPUSCULAR VOLUME 92 fL (79-100); MONO # 0.2 x10^3/uL (0.0-1.1); MONO % 8 % (0-9); NEUT # 2.2 x10^3uL (1.8-7.7); NEUT % 82 % (31-73); PLATELET COUNT 165 x10^3/uL (140-400); RED BLOOD COUNT 3.87 x10^6/uL (3.50-5.40); RED CELL DISTRIBUTION WIDTH 12.7 % (11.5-14.5); WHITE BLOOD COUNT 2.7 x10^3/uL (4.0-11.0)
[2019-04-21 22:35] LABS: CALCIUM 8.2 mg/dL (8.5-10.1); CREATININE 0.4 mg/dL (0.6-1.0); GFR 175.9; POTASSIUM 3.7 mmol/L (3.5-5.1)
[2019-04-21 22:38] LABS: ALBUMIN 3.2 g/dL (3.4-5.0); ALBUMIN/GLOBULIN RATIO 1.1 (1.0-1.7); TOTAL BILIRUBIN 0.2 mg/dL (0.2-1.0)
[2019-04-21 22:50] VITALS: BP 144/88
== END 2019-04-21 23:00 | disposition home or self-care (01) ==
LOC: ER 20:21
DX: J10.1 Influenza due to other identified influenza virus with other respiratory manifestations (principal); R11.2 Nausea with vomiting, unspecified; F41.9 Anxiety disorder, unspecified; J45.909 Unspecified asthma, uncomplicated; M79.7 Fibromyalgia; G43.909 Migraine, unspecified, not intractable, without status migrainosus; Z88.2 Allergy status to sulfonamides; Z91.041 Radiographic dye allergy status
CPT/HCPCS: 36415; 80053; 81001; 85025; 87804; 96361; 96374; 99284; J2405; J7030

== ENCOUNTER 2019-04-23 00:42 | Emergency (ER) | payer MEDICAID ==
[~2019-04-23] VITALS: Ht 160 cm; Wt 104.2 kg
[~2019-04-23 00:42] MED LIST changes: +AMOX1TAB61 PO; +PRED20TA PO
[2019-04-23] MEDS ORDERED: IV NORMAL SALINE 1,000ML 1,000 ML IV ONE (01:00)
[2019-04-23] MEDS ORDERED: ONDANSETRON PF 4 MG/2 ML VIAL. IVP ONE (01:00)
[2019-04-23] MEDS ORDERED: IPRATRPIUM/ALBUTEROL 0.5/2.5MG 3 ML NEBU. NEB ONE (01:00)
[2019-04-23 01:25] LABS: BASO % 1 % (0-3); EOS % 0 % (0-3); HEMATOCRIT 35.7 % (36.0-47.0); HEMOGLOBIN 11.8 g/dL (12.0-15.5); LYMPH # 1.1 x10^3/uL (1.0-4.8); LYMPH % 38 % (24-48); MEAN CORPUSCULAR HEMOGLOBIN 31 pg (25-35); MEAN CORPUSCULAR HGB CONC 33 g/dL (31-37); MEAN CORPUSCULAR VOLUME 93 fL (79-100); MONO # 0.5 x10^3/uL (0.0-1.1); MONO % 16 % (0-9); NEUT # 1.3 x10^3uL (1.8-7.7); NEUT % 45 % (31-73); PLATELET COUNT 158 x10^3/uL (140-400); RED BLOOD COUNT 3.84 x10^6/uL (3.50-5.40); RED CELL DISTRIBUTION WIDTH 12.8 % (11.5-14.5)
[2019-04-23 01:34] LABS: CALCIUM 7.8 mg/dL (8.5-10.1); CREATININE 0.6 mg/dL (0.6-1.0); GFR 110.2; POTASSIUM 3.4 mmol/L (3.5-5.1)
[2019-04-23 01:40] LABS: ALBUMIN 2.8 g/dL (3.4-5.0); ALBUMIN/GLOBULIN RATIO 0.9 (1.0-1.7); TOTAL BILIRUBIN 0.1 mg/dL (0.2-1.0); TOTAL PROTEIN 5.9 g/dL (6.4-8.2)
[2019-04-23] MEDS ORDERED: DEXAMETHASONE SOD PHOS 4 MG/ML VIAL IVP ONE (01:45)
[2019-04-23] MEDS ORDERED: PRED50TA PO (01:45)
[2019-04-23] MEDS ORDERED: ONDA4TAB7 PO (01:45)
[2019-04-23] MEDS ORDERED: ALBU2.5V8 IH (01:45)
[2019-04-23 02:45] VITALS: BP 116/71
--- NOTE | 2019-04-23 05:38 | PHYS DOC ---
Past History Past Medical History: Anxiety, Arrhythmia, Asthma, Fibromyalgia, Migraines Past Surgical History: Cholecystectomy, , Gastric Bypass, Hysterectomy, Other Additional Past Surgical Histo: carpal tunnel lt hand Smoking: Non-smoker Alcohol Use: None Drug Use: None Adult General Chief Complaint Chief Complaint: FLU SYMPTOM HPI HPI Patient is a 43-year-old female who presents with persistent flulike symptoms. Patient said fever chills, sweats, cough, sore throat and body aches for 3 days. Patient was evaluated in the emergency department 2 days ago and diagnosed with influenza. She was outside of the window for Tamiflu. She denies worsening of symptoms. Denies shortness of breath, wheezing. No other acute symptoms or complaints. [] Review of Systems Review of Systems Review of symptoms as per history of present illness. All other review symptoms are negative All other systems were reviewed and found to be within normal limits, except as documented in this note. Current Medications Current Medications Current Medications Medications (Trade) Dose Ordered Sig/Donna Start Time Stop Time Status Last Admin Dose Admin Albuterol/ Ipratropium (Duoneb) 3 ml 1X ONCE 04/23/19 01:00 04/23/19 01:41 DC 04/23/19 01:08 3 ML Dexamethasone Sodium Phosphate (Decadron) 10 mg 1X ONCE 04/23/19 01:45 04/23/19 01:46 DC 04/23/19 02:36 10 MG Ondansetron HCl (Zofran) 4 mg 1X ONCE 04/23/19 01:00 04/23/19 01:41 DC 04/23/19 00:55 4 MG Sodium Chloride 1,000 ml @ 1,000 mls/hr 1X ONCE 04/23/19 01:00 04/23/19 01:59 DC 04/23/19 00:55 1,000 MLS/HR Allergies Allergies Allergies Coded Allergies Type Severity Reaction Last Updated Verified Iodinated Contrast Media Allergy Intermediate 04/21/19 Yes Sulfa (Sulfonamide Antibiotics) Allergy Intermediate 04/21/19 Yes Physical Exam Physical Exam Constitutional: Well developed, well nourished, diaphoretic, uncomfortable appearing. [] HENT: Normocephalic, atraumatic, bilateral external ears normal, nose normal. [] Eyes: PERRLA, EOMI, conjunctiva normal, no discharge. [] Neck: Normal range of motion, no tenderness, supple, no meningismus. [] Cardiovascular:Heart rate regular rhythm, no murmur [] Lungs & Thorax: Bilateral breath sounds clear to auscultation [] Abdomen: Bowel sounds normal, soft, no tenderness. [] Skin: Warm, dry, no erythema, no rash. [] Back: No tenderness. [] Extremities: No tenderness, no edema. [] Neurologic: Alert and oriented X 3, normal motor function, normal sensory function, no focal deficits noted. [] Psychologic: Affect normal, judgement normal, mood normal. [] Current Patient Data Vital Signs Vital Signs Date Time Temp Pulse Resp B/P (MAP) Pulse Ox O2 Delivery O2 Flow Rate FiO2 04/23/19 01:09 96 Room Air 04/23/19 00:42 97.8 50 20 Lab Results Laboratory Tests Test 04/23/19 00:50 White Blood Count 3.0 x10^3/uL (4.0-11.0) L Red Blood Count 3.84 x10^6/uL (3.50-5.40) Hemoglobin 11.8 g/dL (12.0-15.5) L Hematocrit 35.7 % (36.0-47.0) L Mean Corpuscular Volume 93 fL (79-100) Mean Corpuscular Hemoglobin 31 pg (25-35) Mean Corpuscular Hemoglobin Concent 33 g/dL (31-37) Red Cell Distribution Width 12.8 % (11.5-14.5) Platelet Count 158 x10^3/uL (140-400) Neutrophils (%) (Auto) 45 % (31-73) Lymphocytes (%) (Auto) 38 % (24-48) Monocytes (%) (Auto) 16 % (0-9) H Eosinophils (%) (Auto) 0 % (0-3) Basophils (%) (Auto) 1 % (0-3) Neutrophils # (Auto) 1.3 x10^3uL (1.8-7.7) L Lymphocytes # (Auto) 1.1 x10^3/uL (1.0-4.8) Monocytes # (Auto) 0.5 x10^3/uL (0.0-1.1) Eosinophils # (Auto) 0.0 x10^3/uL (0.0-0.7) Basophils # (Auto) 0.0 x10^3/uL (0.0-0.2) Sodium Level 144 mmol/L (136-145) Potassium Level 3.4 mmol/L (3.5-5.1) L Chloride Level 111 mmol/L (98-107) H Carbon Dioxide Level 23 mmol/L (21-32) Anion Gap 10 (6-14) Blood Urea Nitrogen 8 mg/dL (7-20) Creatinine 0.6 mg/dL (0.6-1.0) Estimated GFR (Cockcroft-Gault) 110.2 BUN/Creatinine Ratio 13 (6-20) Glucose Level 86 mg/dL (70-99) Calcium Level 7.8 mg/dL (8.5-10.1) L Total Bilirubin 0.1 mg/dL (0.2-1.0) L Aspartate Amino Transferase (AST) 31 U/L (15-37) Alanine Aminotransferase (ALT) 38 U/L (14-59) Alkaline Phosphatase 97 U/L (46-116) Total Protein 5.9 g/dL (6.4-8.2) L Albumin 2.8 g/dL (3.4-5.0) L Albumin/Globulin Ratio 0.9 (1.0-1.7) L EKG EKG [] Radiology/Procedures Radiology/Procedures [] Course & Med Decision Making Course & Med Decision Making Pertinent Labs and Imaging studies reviewed. (See chart for details) [V fluids, steroids given. Symptoms improved with treatment. Recommend continued supportive care with PCP follow-up as needed.] Dragon Disclaimer Dragon Disclaimer This electronic medical record was generated, in whole or in part, using a voice recognition dictation system. Departure Departure: Impression: Primary Impression: Influenza A Disposition: HOME, SELF-CARE Condition: GOOD Patient Instructions: Influenza A (H1N1) Additional Instructions: Please increase fluids, take Tylenol for pain and Zofran as needed for nausea. Take steroids as directed and continue home inhaler use. Follow-up with your PCP in 3-5 days if symptoms persist. Scripts Albuterol Sulfate (PROAIR HFA INHALER) 8.5 Gm Hfa.aer.ad 2 PUFF IH PRN Q4-6HRS PRN for wheezing for 21 Days, #1 INHALER 0 Refills Prov: JALEN WHITNEY DO 04/23/19 Ondansetron Hcl (ZOFRAN) 4 Mg Tablet 1 TAB PO Q6HRS, #10 TAB Prov: JALEN WHITNEY DO 04/23/19 Prednisone (PREDNISONE) 50 Mg Tablet 1 TAB PO DAILY, #5 TAB Prov: JALEN WHITNEY DO 04/23/19 JALEN WHITNEY DO Apr 23, 2019 05:38
== END 2019-04-23 02:45 | disposition home or self-care (01) ==
LOC: ER 00:42
DX: J10.1 Influenza due to other identified influenza virus with other respiratory manifestations (principal); F41.9 Anxiety disorder, unspecified; J45.909 Unspecified asthma, uncomplicated; M79.7 Fibromyalgia; G43.909 Migraine, unspecified, not intractable, without status migrainosus; Z98.84 Bariatric surgery status; Z91.041 Radiographic dye allergy status; Z88.2 Allergy status to sulfonamides
CPT/HCPCS: 36415; 80053; 85025; 94640; 96374; 96375; 99284; J1100; J2405; J7620; J7030

== ENCOUNTER 2019-07-03 20:02 | Emergency (ER) | payer MEDICAID ==
[~2019-07-03] VITALS: Ht 160 cm; Wt 104.2 kg
[~2019-07-03 20:02] MED LIST changes: +ONDA4TAB7 PO; +PRED50TA PO; +TRAZ-125 PO; -TRAZ-86 PO
[2019-07-03 20:13] VITALS: BP 160/105
[2019-07-03] MEDS ORDERED: KETOROLAC 60 MG/2 ML VIAL. IM ONE ×2 (20:41→21:00)
[2019-07-03] MEDS ORDERED: PROCHLORPERAZINE 10 MG/2 ML VIAL. ONE (20:42)
--- NOTE | 2019-07-03 20:54 | PHYS DOC ---
Past History Past Medical History: Anxiety, Arrhythmia, Asthma, Fibromyalgia, Migraines Past Surgical History: Cholecystectomy, , Gastric Bypass, Hysterectomy, Other Additional Past Surgical Histo: carpal tunnel lt hand Smoking: Non-smoker Alcohol Use: None Drug Use: None Adult General Chief Complaint Chief Complaint: NAUSEA/VOMITING/DIARRHEA HPI HPI Patient is a 44 yo f with sunburn was out in sun all day at job did not use suntan lotion now having migraine typical migraine throbbing vomiting light sensitivity simlar to prior migraine she notes that the sunburn pain has triggered it Review of Systems Review of Systems Con Neurologic: Denies , focal weakness or sensory changes [] Endocrine: Denies polyuria or polydipsia [] All other systems were reviewed and found to be within normal limits, except as documented in this note. Current Medications Current Medications Current Medications Medications (Trade) Dose Ordered Sig/Donna Start Time Stop Time Status Last Admin Dose Admin Ketorolac Tromethamine (Toradol Im) 60 mg STK-MED ONCE 07/03/19 20:41 07/03/19 20:42 DC Prochlorperazine Edisylate (Compazine) 10 mg STK-MED ONCE 07/03/19 20:42 07/03/19 20:42 DC Allergies Allergies Allergies Coded Allergies Type Severity Reaction Last Updated Verified Iodinated Contrast Media Allergy Intermediate 04/21/19 Yes Sulfa (Sulfonamide Antibiotics) Allergy Intermediate 04/21/19 Yes Physical Exam Physical Exam Constitutional: Well developed, well nourished, no acute distress, non-toxic appearance. [] HENT: Normocephalic, atraumatic, bilateral external ears normal, oropharynx moist, no oral exudates, nose normal. [] Eyes: PERRLA, EOMI, conjunctiva normal, no discharge. [] Neck: Normal range of motion, no tenderness, supple, no stridor. [] Cardiovascular:Heart rate regular rhythm, no murmur [] Lungs & Thorax: Bilateral breath sounds clear to auscultation [] Abdomen: Bowel sounds normal, soft, no tenderness, no masses, no pulsatile masses. [] Skin: W significant sunburn noted to the whole face first-degree no airway involvement Back: No tenderness, no CVA tenderness. [] Extremities: No tenderness, no cyanosis, no clubbing, ROM intact, no edema. [] Cranial nerves and [id number] intact Neurologic: Alert and oriented X 3, normal motor function, normal sensory function, no focal deficits noted. [] Psychologic: Affect normal, judgement normal, mood normal. [] Current Patient Data Vital Signs Vital Signs Date Time Temp Pulse Resp B/P (MAP) Pulse Ox O2 Delivery O2 Flow Rate FiO2 07/03/19 20:13 98.3 63 16 160/105 (123) 99 Room Air Blood pressure likely related to pain EKG EKG [] Radiology/Procedures Radiology/Procedures [] Course & Med Decision Making Course & Med Decision Making Pertinent Labs and Imaging studies reviewed. (See chart for details) [] 44-year-old female with a history of migraines multiple other medical problems presenting with a sunburn. I advised her to use aloe vera to stay out of the sun and it should gradually heal. Recommended sun protection precautions in the future. She also notes a migraine she has had migraines before this is similar to those likely triggered by the recent stressor of the sunburn. 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 Dragon Disclaimer Dragon Disclaimer This electronic medical record was generated, in whole or in part, using a voice recognition dictation system. Departure Departure: Impression: Primary Impression: Sunburn Disposition: HOME, SELF-CARE Condition: STABLE Patient Instructions: Evaristo, [id number] SILVINO NICOLE MD Jul 03, 2019 20:54
[2019-07-03] MEDS ORDERED: PROCHLORPERAZINE 10 MG/2 ML VIAL. IM ONE (21:00)
== END 2019-07-03 21:21 | disposition home or self-care (01) ==
LOC: ER 20:02
DX: L55.0 Sunburn of first degree (principal); R11.10 Vomiting, unspecified; G43.909 Migraine, unspecified, not intractable, without status migrainosus; J45.909 Unspecified asthma, uncomplicated; M79.7 Fibromyalgia; Z98.84 Bariatric surgery status; Z88.2 Allergy status to sulfonamides; Z91.041 Radiographic dye allergy status
CPT/HCPCS: 96372; 99284; J0780; J1885

== ENCOUNTER 2020-03-10 00:43 | Emergency (ER) | payer MEDICAID ==
[~2020-03-10] VITALS: Ht 165.1 cm; Wt 97.7 kg
[2020-03-10 00:45] VITALS: BP 177/85
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
== END 2020-03-10 01:50 | disposition home or self-care (01) ==
LOC: ER 00:43
DX: R07.89 Other chest pain (principal); F41.9 Anxiety disorder, unspecified; J45.909 Unspecified asthma, uncomplicated; M79.7 Fibromyalgia; G43.909 Migraine, unspecified, not intractable, without status migrainosus; Z98.84 Bariatric surgery status; Z88.8 Allergy status to other drugs, medicaments and biological substances; Z88.2 Allergy status to sulfonamides; Y08.89XA Assault by other specified means, initial encounter; Y93.89 Activity, other specified; Y92.89 Other specified places as the place of occurrence of the external cause; Y99.8 Other external cause status
CPT/HCPCS: 71046; 99283

== ENCOUNTER 2020-04-09 15:07 | Emergency (ER) | payer MEDICAID ==
[~2020-04-09] VITALS: Ht 160 cm; Wt 96.5 kg
[2020-04-09] MEDS ORDERED: IBUPROFEN 100 MG/5 ML ORAL.SUSP. PO ONE (16:00)
[2020-04-09 16:26] VITALS: BP 156/84
[2020-04-09] MEDS ORDERED: DEXAMETHASONE SOD PHOS 10 MG/ML VIAL. PO ONE (16:45)
--- NOTE | 2020-04-09 16:48 | PHYS DOC ---
Past History Past Medical History: Asthma, Fibromyalgia, Migraines Additional Past Medical Histor: "heart problems" "abnormal heart rhythym" Past Surgical History: Cholecystectomy, , Other Additional Past Surgical Histo: carpal tunnel lt hand, tennis elbow, dominik en y Smoking: Non-smoker Alcohol Use: None Drug Use: None Adult General Chief Complaint Chief Complaint: SORE THROAT HPI HPI Patient is a 44-year-old female presents emergency department complaint is she is had a sore throat for the past 2 days, patient states that she would like to get a strep test and a Covid test, patient states that she also has loss of taste and loss of smell, patient states that she wishes to be off work until this coming Tuesday, 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 Patient denies any recent fever chills shortness of breath congestion nasal congestion skin rashes visual changes nausea vomiting diarrhea urinary problems STI concerns or vaginal discharge. Patient denies any other physical symptoms or physical ailments. Patient states she lives at home with her 11-year-old son, her 14-year-old nephew, and her uncle. Patient states that she usually has lots of pain and is not seeking any pain medicine today although she does have a history of fibromyalgia. Review of Systems Review of Systems 14 body systems of review of systems have been reviewed. See HPI for pertinent positives and negative responses, otherwise all other systems are negative, nonpertinent or noncontributory. Current Medications Current Medications Current Medications Medications (Trade) Dose Ordered Sig/Donna Start Time Stop Time Status Last Admin Dose Admin Dexamethasone Sodium Phosphate (Decadron) 10 mg 1X ONCE 04/09/20 16:45 04/09/20 16:46 DC Ibuprofen (Motrin) 600 mg 1X ONCE 04/09/20 16:00 04/09/20 16:10 DC 04/09/20 16:17 600 MG Allergies Allergies Allergies Coded Allergies Type Severity Reaction Last Updated Verified Iodinated Contrast Media Allergy Intermediate 04/09/20 Yes Sulfa (Sulfonamide Antibiotics) Allergy Intermediate 04/09/20 Yes Latex, Natural Rubber Allergy Unknown 04/09/20 Yes adhesive tape Allergy Unknown 04/09/20 Yes fexofenadine Allergy Unknown 04/09/20 Yes Physical Exam Physical Exam Constitutional: Well developed, well nourished, no acute distress, non-toxic appearance. [] HENT: Normocephalic, atraumatic, bilateral external ears normal, oropharynx moist, no oral exudates, nose normal. Oropharynx mildly erythematous, no tonsillar swelling or exudates appreciated no peritonsillar abscesses, no uvular edema, no cobblestoning noted, no postnasal drip appreciated. Eyes: PERRLA, EOMI, conjunctiva normal, no discharge. Neck: Normal range of motion, no tenderness, supple, no stridor. Cardiovascular:Heart rate regular rhythm, no murmur Lungs & Thorax: Bilateral breath sounds clear to auscultation Abdomen: Bowel sounds normal, soft, no tenderness, no masses, no pulsatile masses. Skin: Warm, dry, no erythema, no rash. Back: No tenderness, no CVA tenderness. Extremities: No tenderness, no cyanosis, no clubbing, ROM intact, no edema. Neurologic: Alert and oriented X 3, normal motor function, normal sensory function, no focal deficits noted. Psychologic: Affect normal, judgement normal, mood normal. Current Patient Data Vital Signs Vital Signs Date Time Temp Pulse Resp B/P (MAP) Pulse Ox O2 Delivery O2 Flow Rate FiO2 04/09/20 15:15 98.4 78 18 159/99 (119) 97 Room Air Lab Results Laboratory Tests Test 04/09/20 15:54 Group A Streptococcus Rapid Negative (NEGATIVE) EKG EKG [] Radiology/Procedures Radiology/Procedures [] Heart Score Risk Factors: Risk Factors: DM, Current or recent (<one month) smoker, HTN, HLP, family history of CAD, obesity. Risk Scores: Risk Factors: DM, Current or recent (<one month) smoker, HTN, HLP, family history of CAD, obesity. Course & Med Decision Making Course & Med Decision Making Pertinent Labs and Imaging studies reviewed. (See chart for details) 44-year-old female patient presents to the emergency department requesting a work excuse through Tuesday, a Covid test, and a rapid strep test. Patient states that she has Covid symptoms and a sore throat. Patient's oropharynx did show mild pharyngeal erythema, however the patient did not appear toxic. The patient's vital signs were stable. A Covid test was obtained and pending results, patient's rapid strep test was obtained and negative for strep A. Patient was given 600 mg Motrin p.o. for pain along with 10 mg p.o. Decadron. Discussed with patient findings, will diagnosed with viral pharyngitis, patient gave verbal understanding of discharge home instructions, use of ov qm-zbv-wchrtip medications for throat discomfort, patient given work excuse to go back to work this coming Tuesday. Patient gave verbal understanding of return to emergency department precautions and concerns patient had no further questions or concerns, patient discharged home without incident. Dragon Disclaimer Dragon Disclaimer This electronic medical record was generated, in whole or in part, using a voice recognition dictation system. Departure Departure: Impression: Primary Impression: Pharyngitis Additional Impression: Person under investigation for COVID-19 Disposition: 01 DC HOME SELF CARE/HOMELESS Condition: IMPROVED Referrals: REBEL PINA (PCP) Patient Instructions: Viral Pharyngitis Additional Instructions: You are seen today in the emergency department for sore throat, your rapid Streptococcus A throat culture was negative in the emergency department, the specimen was sent to lab and will be studied over the next few days, if in fact a Streptococcus bacteria does present itself during the study, you will be called and prescribed the appropriate medications. At this time I am treating you for a viral pharyngitis, and use the keuq-gqe-ngpymzz medications that we discussed at bedside, you have been tested for the coronavirus, at this time your a patient under investigation and suspected baker viral infection, your results should be available in the next 48 hours. You will be given a work excuse for the next 2 days, if you do test positive for the coronavirus I recommend that you self isolate for 10 days. I have attached a copy of the coronavirus COVID-19 instructions to this document, please review. Please return the emergency department for worsening symptoms or other concerns. You have been tested for or diagnosed with COVID-19. It is an infection caused by a new type of coronavirus. COVID-19 will cause cold-like or mild flu symptoms in most. It can cause more severe symptoms like problems breathing in some. There is no treatment for COVID-19. The body will clear the infection over time. Self-care will help to ease discomfort. Steps to Take: Self-Care Rest as needed. Healthy habits may help you feel better. Steps include: Choose healthy foods including fruits and vegetables. Drink water throughout the day. Get plenty of sleep each night. If you smoke, try to quit. It may ease breathing. Avoid alcohol. Keep Others Healthy The virus can spread to others. Droplets are released every time you sneeze or cough. The droplets can get into the mouth, nose, or eyes of people near you and lead to infection. To lower the chances of spreading COVID-19 to others: Stay at home until your doctor has said it is safe to leave. If you tested positive this will mean staying isolated until both of the following are true: At least 7 days have passed since the start of illness. You are free of fever for at least 72 hours without the use of medicine. During this time: - Avoid public areas, events, or transportation. Do not return to work or school until your doctor has said it is safe to do so. - Call ahead if you need to go to a medical center. Let them know you may have COVID-19. It will help them guide you where to go. They may also ask you to wear a facemask when you come to the office. - If you call for emergency medical services, let them know you may have COVID- 19. While at home: - Try to avoid close contact with others. Stay about 6 feet away. - If possible, spend most of your time in a separate room from others. - Use a face mask if you will be in close contact with others such as sharing a room or vehicle. - Have someone wipe down common surfaces in the home. Use household die cast engineer every day on areas like doorknobs, counters, or sinks. - Cough or sneeze into a tissue. Throw the tissue away right after use. If a tissue is not available, cough or sneeze into your elbow. - Wash your hands often. Wash them after sneezing or coughing. Use soap and water and wash for at least 20 seconds. Alcohol based hand belt cleaner can be used if soap and water is not available. - Do not prepare food for others. Avoid sharing personal items like forks, spoons, or toothbrushes. - Avoid close contact with pets while you are sick. There is no evidence of the virus passing to pets. This is a safety step until more is known about this virus. Isolation can be frustrating. Social interaction can help. Keep in touch with friends and family through phone and tech options. You can still interact with others in your home, just keep a safe distance of about 6 feet. Follow-up: Your doctors office will check in with you to see if there are any changes in your health. You may be asked to keep track of symptoms to share with them. They will also l et you know when you are clear to be in public again. Problems to Look Out For: Contact your doctor if your recovery is not going as you expect. Get emergency care if you have problems such as: - Trouble breathing - Nonstop chest pain or pressure - Changes in awareness, confusion, or problems waking - Lips or face have bluish color - Worsening of symptoms If you think you have an emergency, call for emergency medical services right away. As taken from [facility] EMERGENCY DEPARTMENT GENERAL DISCHARGE INSTRUCTIONS Thank you for coming to [facility] (ED) today and trusting us with you care. We trust that you had a positivie experience in our Emergency Department. If you wish to speak to the department management, you may call the director at [phone]. YOUR FOLLOW UP INSTRUCTIONS ARE FOLLOWS: 1. Do you have a private Doctor? If you do not have a private doctor, please ask for a resource list of physicians or clinics that may be able to assist you with follow up care. 2. The Emergency Physician has interpreted your x-rays. The X-Ray specialist will also review them. If there is a change in the findings, you will be notified in 48 hours when at all possible. 3. A lab test or culture has been done, your results will be reviewed and you will be notified if you need a change in treatment. ADDITIONAL INSTRUCTIONS AND INFORMATION: 1. Your care today has been supervised by a physician who is specially trained in emergency care. Many problems require more than one evaluation for a complete diagnosis and treatment. We recommend that you schedule your follow up appointment as recomme nded to ensure complete treatment of you illness or injury. If you are unable to obtain follow up care and continue to have a problem, or if your condition worsens, we recommend that you return to the ED. 2. We are not able to safely determine your condition over the phone nor are we able to give sound medical advice over the phone. For these safety reasons, if you call for medical advice we will ask you to come to the ED for further evaluation. 3. If you have any questions regarding these discharge instructions please call the ED at [phone]. SAFETY INFORMATION: In the interest of safety, wellness, and injury prevention; we encourage you to wear your sealbelt, if you smoke; quite smoking, and we encourage family to use a protective helmet for bicycling and other sporting events that present an increased risk for head injury. IF YOUR SYMPTOMS WORSEN OR NEW SYMPTOMS DEVELOP, OR YOU HAVE CONCERNS ABOUT YOUR CONDITION; OR IF YOUR CONDITION WORSENS WHILE YOU ARE WAITING FOR YOUR FOLLOW UP APPOINTMENT; EITHER CONTACT YOUR PRIMARY CARE DOCTOR, THE PHYSICIAN WHOSE NAME AND NUMBER YOU WERE GIVEN, OR RETURN TO THE ED IMMEDIATELY. Problem Qualifiers Primary Impression: Pharyngitis Pharyngitis/tonsillitis etiology: unspecified etiology Qualified Codes: J02.9 - Acute pharyngitis, unspecified JOHNNA LOPEZ APRN Apr 09, 2020 16:48
== END 2020-04-09 17:03 | disposition home or self-care (01) ==
LOC: ER 15:07
DX: J02.9 Acute pharyngitis, unspecified (principal); J45.909 Unspecified asthma, uncomplicated; M79.7 Fibromyalgia; G43.909 Migraine, unspecified, not intractable, without status migrainosus; Z20.828 Contact with and (suspected) exposure to other viral communicable diseases; Z88.8 Allergy status to other drugs, medicaments and biological substances; Z88.2 Allergy status to sulfonamides
CPT/HCPCS: 87070; 87880; 99283; C9803; J1100; U0003

== ENCOUNTER → 2020-12-22 | Outpatient (CLI) | payer MEDICAID ==
[~2020-12-22] MED LIST changes: -OMEP40CA45 PO; +OMEP40CA7 PO
--- NOTE | 2020-12-22 15:09 | RAD ---
EXAM: Left shoulder, 3 views. HISTORY: Pain. COMPARISON: None. FINDINGS: 3 views of the left shoulder obtained. There is no fracture, dislocation or subluxation. IMPRESSION: No acute osseous finding. Electronically signed by: Amisha Donahue MD (12/22/2020 3:07 PM) [id number]
== END ==
LOC: RAD 14:16
PROVIDERS: ATTEND Physician Assistant
DX: M25.512 Pain in left shoulder (principal)
CPT/HCPCS: 73030

== ENCOUNTER → 2021-01-16 | Outpatient (CLI) | payer MEDICAID ==
--- NOTE | 2021-01-16 12:28 | RAD ---
EXAM: Bilateral knees, 3 views. HISTORY: Pain. COMPARISON: None. FINDINGS: 3 views of the knees are obtained. There is no fracture, dislocation or subluxation. There is mild bilateral medial compartment joint space narrowing. There is minimal enthesopathy along the s uperior patellae. There is no joint effusion. IMPRESSION: Mild medial compartment joint space narrowing. No acute osseous finding. Electronically signed by: Amisha Donahue MD (01/16/2021 12:26 PM) [facility]
== END ==
LOC: RAD 10:08
PROVIDERS: ATTEND Physician Assistant
DX: M25.561 Pain in right knee (principal); M25.562 Pain in left knee
CPT/HCPCS: 73565; 73560-50

== ENCOUNTER → 2021-02-17 | Outpatient (CLI) | payer MEDICAID ==
[~2021-02-17] MED LIST changes: -CITA10TA4 PO; +CITA10TA5 PO; +DICY20TA PO; -DICY20TA3 PO; -DULO60CA6 PO; +DULO60CA7 PO; +TIZA-75 PO; -TIZA4TAB2 PO
--- NOTE | 2021-02-18 08:59 | CARD ---
MR#: [id number] Date of Study: 02/17/2021 Ordering Physician: JUSTIN RANGEL, Referring Physician: JUSTIN RANGEL, Tech: Dorian Vargas [facility] APPROVED REPORT EXAM: Two-dimensional and M-mode echocardiogram with Doppler and color Doppler. Other Information Quality : GoodHR: 60bpm Rhythm : NSR INDICATION Hypertension/HCVD RISK FACTORS Hypertension Obesity 2D DIMENSIONS IVSd1.1 (0.7-1.1cm)Aortic Root(2D)3.2 (2.0-3.7cm) LVDd4.7 (3.9-5.9cm)LVOT Diameter2.1 (1.8-2.4cm) PWd1.1 (0.7-1.1cm)LVDs3.0 (2.5-4.0cm) FS (%) 35.3 %SV66.2 ml LVEF(%)64.6 (>50%) Aortic Valve AoV Peak Vinicio.145.3cm/sAoV VTI27.7cm AO Peak GR.8.4mmHgLVOT Peak Vinicio.113.7cm/s LVOT VTI 24.09cmAO Mean GR.5mmHg KEITH (VMAX)2.63yw8CPK (VTI)3.15cm2 Mitral Valve MV E Aexfxcle49.9cm/sMV E Peak Gr.3mmHg MV DECEL [id number] A Spbabjrj41.9cm/s MV E Mean Gr.1mmHgE/A Ratio1.1 Pulmonary Valve PV Peak Ifuchspx825.5cm/sPV Peak Grad.4mmHg Tricuspid Valve TR P. Madhelkj273zn/sTR Peak Gr.20mmHg Pulmonary Vein S1 Bbxgjfkz93.6cm/sD2 Laxzekuu28.9cm/s LEFT VENTRICLE The left ventricle is normal size. There is normal left ventricular wall thickness. The left ventricu lar systolic function is normal and the ejection fraction is within normal range. EF 55% There is nor mal LV segmental wall motion. Tissue Doppler imaging reveals mild left ventricular diastolic dysfunct ion. No left ventricle thrombus noted on this study. There is no ventricular septal defect visualized . There is no left ventricular aneurysm. There is no mass noted in the left ventricle. RIGHT VENTRICLE The right ventricle is normal size. There is normal right ventricular wall thickness. The right ventr icular systolic function is normal. ATRIA The left atrium is mildly dilated. The right atrium size is normal. The interatrial septum is intact with no evidence for an atrial septal defect or patent foramen ovale as noted on 2-D or Doppler imagi ng. AORTIC VALVE The aortic valve is normal in structure and function. The aortic valve is tri-cuspid. Doppler and Col or Flow revealed no significant aortic regurgitation. There is no significant aortic valvular stenosi s. There is no aortic valvular vegetation. MITRAL VALVE The mitral valve is normal in structure and function. There is no evidence of mitral valve prolapse. There is no mitral valve stenosis. Doppler and Color Flow revealed no mitral valve regurgitation note d. TRICUSPID VALVE The tricuspid valve is normal in structure and function. Doppler and Color Flow revealed trace to mil d tricuspid regurgitation. There is no tricuspid valve prolapse or vegetation. There is no tricuspid valve stenosis. PULMONIC VALVE Doppler and Color Flow revealed no pulmonic valvular regurgitation. There is no pulmonic valvular dulce nosis. GREAT VESSELS The aortic root is normal in size. The ascending aorta is normal in size. The IVC is normal in size a nd collapses >50% with inspiration. PERICARDIAL EFFUSION There is no pleural effusion. There is no evidence of significant pericardial effusion. Critical Notification Critical Value: No <Conclusion> The left ventricular systolic function is normal and the ejection fraction is within normal range. EF 55% There is normal LV segmental wall motion. Tissue Doppler imaging reveals mild left ventricular diastolic dysfunction. Signed by : Justin Rangel, Electronically Approved : 02/18/2021 08:59:19
== END ==
LOC: ECHO 14:48
PROVIDERS: ATTEND Internal Medicine Cardiovascular Disease
DX: I07.1 Rheumatic tricuspid insufficiency (principal); I11.9 Hypertensive heart disease without heart failure
CPT/HCPCS: 93306

== ENCOUNTER → 2021-04-14 | Outpatient (CLI) | payer MEDICAID ==
[2021-04-14 13:19] LABS: BASO % 1 % (0-3); EOS # 0.1 x10^3/uL (0.0-0.7); EOS % 1 % (0-3); HEMATOCRIT 38.6 % (36.0-47.0); HEMOGLOBIN 12.5 g/dL (12.0-15.5); LYMPH # 1.4 x10^3/uL (1.0-4.8); LYMPH % 32 % (24-48); MEAN CORPUSCULAR HEMOGLOBIN 30 pg (25-35); MEAN CORPUSCULAR HGB CONC 32 g/dL (31-37); MEAN CORPUSCULAR VOLUME 92 fL (79-100); MONO # 0.4 x10^3/uL (0.0-1.1); MONO % 8 % (0-9); NEUT # 2.4 x10^3uL (1.8-7.7); NEUT % 57 % (31-73); PLATELET COUNT 219 x10^3/uL (140-400); RED BLOOD COUNT 4.19 x10^6/uL (3.50-5.40); RED CELL DISTRIBUTION WIDTH 13.9 % (11.5-14.5); WHITE BLOOD COUNT 4.2 x10^3/uL (4.0-11.0)
[2021-04-14 13:31] LABS: ALBUMIN 3.3 g/dL (3.4-5.0); ALBUMIN/GLOBULIN RATIO 0.9 (1.0-1.7); CALCIUM 8.7 mg/dL (8.5-10.1); CREATININE 0.6 mg/dL (0.6-1.0); GFR 109.1; POTASSIUM 3.7 mmol/L (3.5-5.1); TOTAL BILIRUBIN 0.5 mg/dL (0.2-1.0); TOTAL PROTEIN 7.1 g/dL (6.4-8.2)
== END ==
LOC: LAB 12:08
PROVIDERS: ATTEND Physician Assistant Medical
DX: I10 Essential (primary) hypertension (principal); E78.5 Hyperlipidemia, unspecified; R60.9 Edema, unspecified
CPT/HCPCS: 36415; 80053; 80061; 83880; 85025

== ENCOUNTER 2021-06-14 06:58 | Emergency (ER) | payer MEDICAID ==
[~2021-06-14] VITALS: Ht 160 cm; Wt 96.5 kg
--- NOTE | 2021-06-14 07:08 | PHYS DOC ---
Past History Past Medical History: Asthma, Fibromyalgia, Migraines Additional Past Medical Histor: "heart problems" "abnormal heart rhythym" Past Surgical History: Cholecystectomy, , Other Additional Past Surgical Histo: carpal tunnel lt hand, tennis elbow, dominik en y Smoking: Non-smoker Alcohol Use: None Drug Use: None Adult General Chief Complaint Chief Complaint: LOWER EXT PAIN [facility] HPI Patient is a 46-year-old female complaining of right lower extremity pain. Injury onset was yesterday, she was at work ambulating down stairs which she reports were icy when she suffered an inversion type ankle injury and subsequently buckled her right leg under her. She fell trapping her right lower extremity under her body, did not hit head, no loss of consciousness. She was able to work the rest of her shift but admits pain to right navicular, right lateral malleolus and right fibular head area that exacerbated with direct pressure and/or weightbearing. No history of osteoporosis or other greater bone disease, no changes in motor or sensory or neuro function besides decreased range of motion due to pain Review of Systems Review of Systems Fourteen body systems of review of systems have been reviewed. See HPI for pertinent positives and negative responses, other wallace all other systems are negative, non-pertinent or non-contributory Allergies Allergies Allergies Coded Allergies Type Severity Reaction Last Updated Verified Iodinated Contrast Media Allergy Intermediate 04/09/20 Yes Sulfa (Sulfonamide Antibiotics) Allergy Intermediate 04/09/20 Yes Latex, Natural Rubber Allergy Unknown 04/09/20 Yes adhesive tape Allergy Unknown 04/09/20 Yes fexofenadine Allergy Unknown 04/09/20 Yes Physical Exam Physical Exam Constitutional: Well developed, well nourished and morbidly obese, no acute distress, non-toxic appearance. HENT: Normocephalic, atraumatic, bilateral external ears normal, oropharynx moist, no oral exudates, nose normal. Eyes: PERRLA, EOMI, conjunctiva normal, no discharge. Neck: Normal range of motion, no tenderness, supple, no stridor. Cardiovascular: Heart rate regular per monitor Lungs & Thorax: No respiratory distress or accessory muscle use, bilateral chest rise Abdomen: Abdomen soft, non-tender, bowel sounds present in all quadrants, no gua rding or rebound, nonacute abdomen. Skin: Warm, dry, no erythema, no rash. Back: No tenderness, no CVA tenderness. Extremities: Posterior fibular head tenderness of right, right lateral malleolus pain with palpation in addition to right fifth navicular pain with palpation otherwise unremarkable formal examination of hips, bilateral femurs, bilateral knees, bilateral soft tissue compartments of lower extremities, bilateral ankles and bilateral feet, no cyanosis, no clubbing, ROM intact, no edema. Neurologic: Alert and oriented X 3, grossly normal motor & sensory function, no focal deficits noted. Psychologic: Anxious affect and mood Current Patient Data Vital Signs Vital Signs Date Time Temp Pulse Resp B/P (MAP) Pulse Ox O2 Delivery O2 Flow Rate FiO2 06/14/21 07:26 97.8 18 137/70 (92) 99 Room Air Vital Signs Date Time Temp Pulse Resp B/P (MAP) Pulse Ox O2 Delivery O2 Flow Rate FiO2 06/14/21 07:26 97.8 18 137/70 (92) 99 Room Air EKG EKG [] Radiology/Procedures Radiology/Procedures Right ankle 3 views: Reason for examination: Pain in the right knee, right foot and right ankle. No acute fracture or dislocation is seen. The bone density is normal. No abnormal periosteal reaction is seen. Joint spaces are maintained. IMPRESSION: No acute abnormality seen at the right ankle. Right foot 3 views: No acute fracture or dislocation is evident. The bone density is normal. No abnormal periosteal reaction is seen. Joint spaces are maintained. Note is made of some calcaneal spurring the plantar surface and at the Achilles tendon insertion. IMPRESSION: No acute abnormality seen at the right foot. Right knee 3 views: No fracture or dislocation is seen. The bone density is normal. No abnormal periosteal reaction is seen. Joint spaces are maintained. No gross joint effusion is evident. IMPRESSION: No acute abnormality seen at the right knee. Electronically signed by: Bibiana Sol MD (06/14/2021 8:05 AM) [id number] Heart Score C/O Chest Pain: No Risk Factors: Risk Factors: DM, Current or recent (<one month) smoker, HTN, HLP, family history of CAD, obesity. Risk Scores: Risk Factors: DM, Current or recent (<one month) smoker, HTN, HLP, family history of CAD, obesity. Course & Med Decision Making Course & Med Decision Making ABCs unremarkable HPI physical exam and comprehensive ER work-up nonconcerning for any emergent or surgical issues Radiographs of right knee ankle and foot unremarkable. Supportive care and PCP follow-up advised Irene Disclaimer Irene Disclaimer This electronic medical record was generated, in whole or in part, using a voice recognition dictation system. Departure Departure: Impression: Primary Impression: Right knee pain Additional Impressions: Right ankle pain Right foot pain Disposition: HOME / SELF CARE / HOMELESS Condition: STABLE Referrals: REBEL PINA (PCP) Patient Instructions: RICE - Routine Care for Injuries Additional Instructions: You have been evaluated in the Emergency Department today for right lateral knee, ankle and foot pain after inversion type injury from your fall. The x-rays we obtained did not show any acute bony abnormalities. Please continue supportive care practices such as rest, ice, and elevate your ankle to control your pain. Please follow up with your primary care physician as needed. If you do not have a primary doctor, you can call your insurance company to find one. If you do not have insurance, you can go to the finance/registration department for more assistance. Return to the Emergency Department if you experience worsening pain, numbne ss/tingling, change of color in your toes, or any other concerning symptoms. Problem Qualifiers LATA FABIAN DO Jun 14, 2021 07:08
[2021-06-14 07:26] VITALS: BP 137/70
--- NOTE | 2021-06-14 08:07 | RAD ---
Right ankle 3 views: Reason for examination: Pain in the right knee, right foot and right ankle. No acute fracture or dislocation is seen. The bone density is normal. No abnormal periosteal reaction is seen. Joint spaces are maintained. IMPRESSION: No acute abnormality seen at the right ankle. Right foot 3 views: No acute fracture or dislocation is evident. The bone density is normal. No abnormal periosteal react ion is seen. Joint spaces are maintained. Note is made of some calcaneal spurring the plantar surface and at the Achilles tendon insertion. IMPRESSION: No acute abnormality seen at the right foot. Right knee 3 views: No fracture or dislocation is seen. The bone density is normal. No abnormal periosteal reaction is se en. Joint spaces are maintained. No gross joint effusion is evident. IMPRESSION: No acute abnormality seen at the right knee. Electronically signed by: Bibiana Sol MD (06/14/2021 8:05 AM) [id number]
== END 2021-06-14 08:28 | disposition home or self-care (01) ==
LOC: ER 06:58
DX: M25.561 Pain in right knee (principal); M25.571 Pain in right ankle and joints of right foot; J45.909 Unspecified asthma, uncomplicated; M79.7 Fibromyalgia; G43.909 Migraine, unspecified, not intractable, without status migrainosus; Z91.041 Radiographic dye allergy status; Z88.2 Allergy status to sulfonamides; Z91.040 Latex allergy status; Z88.8 Allergy status to other drugs, medicaments and biological substances
CPT/HCPCS: 73562; 73610; 73630; 99284

== ENCOUNTER 2021-08-05 18:16 | Emergency (ER) | payer MEDICAID ==
[~2021-08-05] VITALS: Ht 160 cm; Wt 127.0 kg
--- NOTE | 2021-08-05 18:45 | PHYS DOC ---
Past History Past Medical History: Asthma, Fibromyalgia, Migraines Additional Past Medical Histor: "heart problems" "abnormal heart rhythym" Past Surgical History: Cholecystectomy, , Other Additional Past Surgical Histo: carpal tunnel lt hand, tennis elbow, dominik en y Smoking: Non-smoker Alcohol Use: None Drug Use: None General Adult EDM: Chief Complaint: NAUSEA/VOMITING/DIARRHEA HPI: HPI: ",, I ve been hot and cold all day.. maybe started yesterday... I hurt all over,,, some wheezing headache.. that nausea vomiting ...just sick".. My blood pressure was up" Patient is a 46 year old female who presents with above hx and multiple compl aints elev. BP, Headache, Malaise, N/V/ D. Patient denies any specific ill contacts. No recent travel. Patient did not get flu vaccination. No history of bad food intake. No changes in meds. Patient did not get COVID vaccination this season. Pt. normally follows with Sam. Patient follows with Carole for cardiac issues. The, patient has past medical history of fibromyalgia, DJD, asthma, hypertension, osteoarthritis, dysrhythmia, hypertension, migraines, and morbid obesity. Patient has had C-sections, gastric bypass surgery and 2015, cholecystectomy, carpal tunnels releases, ulnar nerve releases, and heel gummer implant. Patient is accompanied with her uncle. Patient has 1 son and 1 daughter. Does not smoke. Does not drink. Does not use recreational drugs. Review of Systems: Review of Systems: Constitutional: Denies fever or chills Eyes: Denies change in visual acuity HENT: Denies nasal congestion or sore throat Respiratory: Complains of cough and wheezing Cardiovascular: Denies chest pain or edema GI: Complains of abdominal pain, nausea, vomiting, diarrhea . Denies bloody stools : Denies dysuria Musculoskeletal: Complains of generalized myalgia and arthralgia Integument: Denies rash Neurologic: Complains of headache. Denies, focal weakness or sensory changes Endocrine: Denies polyuria or polydipsia Lymphatic: Denies swollen glands Psychiatric: Denies depression or anxiety Family History: Family History: Does have 1 brother age 46 that is healthy. Father is alive in his 60s but had a CVA. Mother age 64 because of breast cancer. Current Medications: Current Meds: See nursing for home meds Allergies: Allergies: Allergies Coded Allergies Type Severity Reaction Last Updated Verified Iodinated Contrast Media Allergy Intermediate 06/14/21 Yes Sulfa (Sulfonamide Antibiotics) Allergy Intermediate 06/14/21 Yes Latex, Natural Rubber Allergy Unknown 06/14/21 Yes adhesive tape Allergy Unknown 06/14/21 Yes fexofenadine Allergy Unknown 06/14/21 Yes Physical Exam: PE: Constitutional: In acute distress, non-toxic appearance. [] HENT: Normocephalic, atraumatic, bilateral external ears normal, oropharynx moist, no oral exudates, nose swollen turbinates clear rhinorrhea. Injected pharynx. Eyes: PERRLA, EOMI, conjunctiva normal, no discharge. [] Neck: Normal range of motion, no tenderness, supple, no stridor. More than 17 inches circumference Cardiovascular:Heart rate regular rhythm, no murmur [] Lungs & Thorax: Bilateral breath sounds equal apex with scattered wheezes auscultation []. Has midline scar for pacer implant Abdomen: Bowel sounds normal, soft, no tenderness, no masses, no pulsatile masses. [] Old surgery scars. Morbid obesity. Skin: Warm, dry, , facial erythema-states she gets flushed when she is sick Back: No tenderness, no CVA tenderness. [] Extremities: No tenderness, no cyanosis, no clubbing, ROM intact, No cording. Trace ankle edema Neurologic: Alert and oriented X 3, normal motor function, normal sensory function, no focal deficits noted. [] DTRs +2 patella brachial. Bond Runner equal. No drift. Ambulatory Psychologic: Affect anxious, judgement normal, mood normal. [] Current Patient Data: Vital Signs: Vital Signs Date Time Temp Pulse Resp B/P (MAP) Pulse Ox O2 Delivery O2 Flow Rate FiO2 08/05/21 18:24 97.6 72 18 190/111 (137) 99 Room Air EKG: EKG: My interpretation EKG shows a sinus rhythm at 66 bpm. Occasional premature atrial contraction. No findings of acute STEMI of contralateral changes. Time of EKG is 1837 hrs. [] Radiology/Procedures: Radiology/Procedures: [][address] [address] IMAGING REPORT Signed PATIENT: JUSTA CORDERO AACCOUNT: [id number] : 1975 LOCATION: ER AGE: 46 SEX: F EXAM STATUS: REG ER ORD. PHYSICIAN: BRYAN LAYNE MD REASON: htn PROCEDURE: ACUTE ABDOMEN SERIES Exam: Acute abdominal series INDICATION: Hypertension TECHNIQUE: Frontal view of the chest with upright and supine views the abdomen Comparisons: None FINDINGS: The cardiomediastinal silhouette and pulmonary vessels are within normal limits. The lung and pleural spaces are clear. Air and stool are noted throughout the colon to level the rectum in a nonobstructive bowel gas pattern. No suspicious masses or calcifications. Visualized osseous structures are unremarkable. IMPRESSION: 1. No acute cardiopulmonary process. 2. Nonobstructive bowel gas pattern. Electronically signed by: Sudhir Rondon MD (08/05/2021 7:26 PM) [facility] DICTATED AND SIGNED BY: SUDHIR RONDON MD DATE: 08/05/211923 CC: BRYAN LAYNE MD; REBEL PINA [place] [id number] IMAGING REPORT Signed PATIENT: JUSTA CORDERO AACCOUNT: [id number] : 1975 LOCATION: ER AGE: 46 SEX: F EXAM STATUS: REG ER ORD. PHYSICIAN: BRYAN LAYNE MD REASON: severe migraine symptoms PROCEDURE: CT HEAD WO CONTRAST PQRS Compliance Statement: One or more of the following individualized dose reduction techniques were utilized for this examination: 1. Automated exposure control 2. Adjustment of the mA and/or kV according to patient size 3. Use of iterative reconstruction technique CT HEAD WITHOUT CONTRAST History: Reason: severe migraine symptoms /, hypertension Comparison: CT head without contrast June 23, 2018. Procedure: Axial images are obtained of the head from the skull base through the vertex without IV contrast. Findings: The ventricles and sulci are normal for the patient's age. No mass-effect, midline shift, hemorrhage, extra-axial fluid collection, or obvious acute infarction is identified. Basilar cisterns are patent. Bone windows demonstrate no acute calvarial abnormality. The visualized paranasal sinuses are clear. Mastoid air cells are well aerated. IMPRESSION: No acute intracranial abnormality. Electronically signed by: Mary Ann Holden MD (08/05/2021 7:27 PM) [facility] DICTATED AND SIGNED BY: MARY ANN HOLDEN MD DATE: 08/05/211923 CC: BRYAN LAYNE MD; [facility] ~ Heart Score: C/O Chest Pain: No HEART Score for Chest Pain: HEART Score for Chest Pain Response (Comments) Value History Slighlty/Non-Suspicious 0 ECG Normal 0 Age < 45 0 Risk Factors 1 or 2 Risk Factors 1 Troponin < Normal Limit 0 Total 1 Risk Factors: Risk Factors: DM, Current or recent (<one month) smoker, HTN, HLP, family history of CAD, obesity. Risk Scores: Score 0 - 3: 2.5% MACE over next 6 weeks - Discharge Home Score 4 - 6: 20.3% MACE over next 6 weeks - Admit for Clinical Observation Score 7 - 10: 72.7% MACE over next 6 weeks - Early Invasive Strategies Course & Med Decision Making: Course & Med Decision Making Pertinent Labs and Imaging studies reviewed. (See chart for details) Stay on clear fluid diet next couple days. Push fluids such as grape juice, apple juice, popsicles, Jell-O, sweet tea etc. Patient continue home antibiotics with extract. Patient take Tylenol and ibuprofen for pain. Patient review ED work-up with primary care. Patient wear clonidine patch until follow-up with primary care. Return if any concerns. Impression: 1. Viral syndrome 2. Tolerated hypertension 3. Acute gastroenteritis [] Dragon Disclaimer: Dragon Disclaimer: This electronic medical record was generated, in whole or in part, using a voice recognition dictation system. Departure Departure: Referrals: REBEL PINA (PCP) Scripts Ondansetron Hcl (ONDANSETRON HCL) 4 Mg Tablet 8 MG PO QIDPRN for nv for 30 Days, #30 TAB Prov: BRYAN LAYNE MD 08/05/21 Dragsd Disclaimer This chart was dictated in whole or in part using Voice Recognition software in a busy, high-work load, and often noisy Emergency Department environment. It may contain unintended and wholly unrecognized errors or omissions. Dragon Disclaimer This chart was dictated in whole or in part using Voice Recognition software in a busy, high-work load, and often noisy Emergency Department environment. It may contain unintended and wholly unrecognized errors or omissions. Dragon Disclaimer This chart was dictated in whole or in part using Voice Recognition software in a busy, high-work load, and often noisy Emergency Department environment. It may contain unintended and wholly unrecognized errors or omissions. BRYAN LAYNE MD Aug 05, 2021 18:45
--- NOTE | 2021-08-05 18:59 | EKG ---
[address] [address] Test Date: 2021-08-05 Test Time: 18:37:21 Pat Name: JUSTA CORDERO Department: Room: Gender: F Industrial Safety And Health Manager: : 1975 Requested By: BRYAN LAYNE Order Number: [id number] Reading MD: Edis Ballesteros Measurements Intervals [place] Rate: 66 P: 6 [place]: 160 QRS: 11 QRSD: 72 T: 6 QT: 384 QTc: 404 Interpretive Statements SINUS RHYTHM NORMAL ECG Electronically Signed On 08-07-2021 13:23:21 CDT by Edis Ballesteros
[2021-08-05] MEDS ORDERED: ONDANSETRON PF 4 MG/2 ML VIAL. IVP ONE (19:00)
[2021-08-05] MEDS ORDERED: FAMOTIDINE 20 MG/2 ML VIAL IVP ONE (19:00)
[2021-08-05] MEDS ORDERED: IV RINGERS SOLUTION,LACTATED 1,000 ML IV SCH (19:00)
[2021-08-05 19:08] LABS: BASO # 0.1 x10^3/uL (0.0-0.2); BASO % 1 % (0-3); EOS % 1 % (0-3); HEMATOCRIT 36.8 % (36.0-47.0); HEMOGLOBIN 12.2 g/dL (12.0-15.5); LYMPH # 1.6 x10^3/uL (1.0-4.8); LYMPH % 28 % (24-48); MEAN CORPUSCULAR HEMOGLOBIN 30 pg (25-35); MEAN CORPUSCULAR HGB CONC 33 g/dL (31-37); MEAN CORPUSCULAR VOLUME 91 fL (79-100); MONO # 0.4 x10^3/uL (0.0-1.1); MONO % 8 % (0-9); NEUT # 3.6 x10^3uL (1.8-7.7); NEUT % 62 % (31-73); PLATELET COUNT 223 x10^3/uL (140-400); RED BLOOD COUNT 4.05 x10^6/uL (3.50-5.40); RED CELL DISTRIBUTION WIDTH 14.1 % (11.5-14.5); WHITE BLOOD COUNT 5.8 x10^3/uL (4.0-11.0)
--- NOTE | 2021-08-05 19:28 | RAD ---
Exam: Acute abdominal series INDICATION: Hypertension TECHNIQUE: Frontal view of the chest with upright and supine views the abdomen Comparisons: None FINDINGS: The cardiomediastinal silhouette and pulmonary vessels are within normal limits. The lung and pleural spaces are clear. Air and stool are noted throughout the colon to level the rectum in a nonobstructive bowel gas patter n. No suspicious masses or calcifications. Visualized osseous structures are unremarkable. IMPRESSION: 1. No acute cardiopulmonary process. 2. Nonobstructive bowel gas pattern. Electronically signed by: Sudhir Bishop MD (08/05/2021 7:26 PM) [facility]
--- NOTE | 2021-08-05 19:30 | RAD ---
PQRS Compliance Statement: One or more of the following individualized dose reduction techniques were utilized for this examinat ion: 1. Automated exposure control 2. Adjustment of the mA and/or kV according to patient size 3. Use of iterative reconstruction technique CT HEAD WITHOUT CONTRAST History: Reason: severe migraine symptoms /, hypertension Comparison: CT head without contrast June 23, 2018. Procedure: Axial images are obtained of the head from the skull base through the vertex without IV co ntrast. Findings: The ventricles and sulci are normal for the patient's age. No mass-effect, midline shift, hemorrhage, extra-axial fluid collection, or obvious acute infarction is identified. Basilar cisterns are patent. Bone windows demonstrate no acute calvarial abnormality. The visualized paranasal sinuses are clear. Mastoid air cells are well aerated. IMPRESSION: No acute intracranial abnormality. Electronically signed by: Henry Holden MD (08/05/2021 7:27 PM) [facility]
[2021-08-05 19:42] LABS: CALCIUM 9.2 mg/dL (8.5-10.1); CREATININE 0.5 mg/dL (0.6-1.0); POTASSIUM 3.8 mmol/L (3.5-5.1)
[2021-08-05 19:51] LABS: ALBUMIN 3.5 g/dL (3.4-5.0); DIRECT BILIRUBIN 0.1 mg/dL (0.0-0.2); MAGNESIUM 1.9 mg/dL (1.8-2.4); TOTAL BILIRUBIN 0.7 mg/dL (0.2-1.0); TOTAL PROTEIN 7.2 g/dL (6.4-8.2)
[2021-08-05 21:50] LABS: BARBITURATES NEG (NEG); BENZODIAZEPINES NEG (NEG); CANNABINOIDS NEG (NEG); COCAINE NEG (NEG); METHADONE NEG (NEG); OPIATES NEG (NEG); PHENCYCLIDINE NEG (NEG)
[2021-08-05 21:51] LABS: AMPHETAMINE/METHAMPHETAMINE NEG (NEG); BACTERIA,URINE MOD /HPF (0-FEW); CLARITY,URINE CLEAR; COLOR,URINE YELLOW; GLUCOSE,URINE NEG (NEG); NITRITE,URINE NEG (NEG); RBC,URINE OCC /HPF (0-2); SQUAMOUS EPITHELIAL CELL,UR MOD /LPF; UROBILINOGEN,URINE 0.2 mg/dL (0.2 mg/dL)
[2021-08-05] MEDS ORDERED: cloNIDine TTS-2 1 PATCH PATCH TD ONE (22:15)
[2021-08-05] MEDS ORDERED: cloNIDine HCL 0.1 MG TABLET PO ONE (22:15)
[2021-08-05 22:18] LABS: INFLUENZA A PATIENT NEGATIVE (NEGATIVE); INFLUENZA B PATIENT NEGATIVE (NEGATIVE)
[2021-08-05] MEDS ORDERED: ONDA-84 PO (22:22)
[2021-08-05 22:47] VITALS: BP 166/96
== END 2021-08-05 23:05 | disposition home or self-care (01) ==
LOC: ER 18:16
DX: K52.9 Noninfective gastroenteritis and colitis, unspecified (principal); B34.9 Viral infection, unspecified; I10 Essential (primary) hypertension; J45.909 Unspecified asthma, uncomplicated; M79.7 Fibromyalgia; G43.909 Migraine, unspecified, not intractable, without status migrainosus; Z20.822 Contact with and (suspected) exposure to COVID-19; Z90.49 Acquired absence of other specified parts of digestive tract; Z98.890 Other specified postprocedural states; Z91.041 Radiographic dye allergy status; Z88.2 Allergy status to sulfonamides; Z91.040 Latex allergy status; Z88.8 Allergy status to other drugs, medicaments and biological substances
CPT/HCPCS: 36415; 70450; 74022; 80048; 80076; 80307; 81001; 82150; 82550; 83690; 83735; 83880; 84443; 84484; 85025; 85379; 85610; 85730; 87086; 87428; 93005; 96361; 96374; 96375; 99285; J2405; J3490; J7120

== ENCOUNTER 2021-08-21 11:33 | Emergency (ER) | payer MEDICAID ==
[~2021-08-21] VITALS: Ht 160 cm; Wt 127.0 kg
[~2021-08-21 11:33] MED LIST changes: +ONDA-84 PO
[2021-08-21] MEDS ORDERED: KETOROLAC 15 MG/ML VIAL. IVP ONE (12:00)
[2021-08-21] MEDS ORDERED: PROCHLORPERAZINE 10 MG/2 ML VIAL. IV ONE (12:00)
[2021-08-21] MEDS ORDERED: diphenhydrAMINE 50 MG/ML VIAL IVP ONE (12:00)
--- NOTE | 2021-08-21 12:03 | PHYS DOC ---
Past History Past Medical History: Asthma, Fibromyalgia, Migraines Additional Past Medical Histor: "heart problems" "abnormal heart rhythym" Past Surgical History: Cholecystectomy, , Other Additional Past Surgical Histo: carpal tunnel lt hand, tennis elbow, dominik en y Smoking: Non-smoker Alcohol Use: None Drug Use: None General Adult EDM: Chief Complaint: MULTIPLE COMPLAINTS HPI: HPI: Patient is a 46-year-old female who presents with a headache and nausea. Patient states that she has a history of migraines and this is consistent with such. She denies any fever, neck stiffness or confusion. No rash. She has not thrown up but has developed some discomfort radiating into her chest as well. She was given nitroglycerin by EMS and transport and states her headache became worse. No recent trauma. Review of Systems: Review of Systems: Constitutional: Denies fever Eyes: Denies change in visual acuity or eye pain HENT: Denies sore throat Respiratory: Denies shortness of breath Cardiovascular: Reports chest pain GI: Denies abd pain : Denies dysuria Musculoskeletal: Denies back or extremity injury Integument: Denies rash or skin lesions Neurologic: Reports headache, focal weakness or sensory changes All other systems were reviewed and found to be within normal limits, except as documented in this note. Current Medications: Current Meds: Current Medications Medications (Trade) Dose Ordered Sig/Donna Start Time Stop Time Status Last Admin Dose Admin Diphenhydramine HCl (Benadryl) 50 mg 1X ONCE 08/21/21 12:00 08/21/21 12:01 UNV 08/21/21 11:58 50 MG Ketorolac Tromethamine (Toradol 15mg Vial) 15 mg 1X ONCE 08/21/21 12:00 08/21/21 12:01 UNV 08/21/21 11:58 15 MG Prochlorperazine Edisylate (Compazine) 10 mg 1X ONCE 08/21/21 12:00 08/21/21 12:01 UNV 08/21/21 11:58 10 MG Allergies: Allergies: Allergies Coded Allergies Type Severity Reaction Last Updated Verified Iodinated Contrast Media Allergy Intermediate 06/14/21 Yes Sulfa (Sulfonamide Antibiotics) Allergy Intermediate 06/14/21 Yes Latex, Natural Rubber Allergy Unknown 06/14/21 Yes adhesive tape Allergy Unknown 06/14/21 Yes fexofenadine Allergy Unknown 06/14/21 Yes Physical Exam: PE: Constitutional: Well developed, well nourished, no acute distress, non-toxic appearance. HENT: Normocephalic, atraumatic, bilateral external ears normal, mucosa moist, nose normal. Eyes: EOMI, conjunctiva normal, no discharge. Neck: Normal range of motion, supple, no stridor, no meningeal signs. Cardiovascular: Regular rate and rhythm Lungs & Thorax: Bilateral breath sounds clear to auscultation Abdomen: Soft, no tenderness or obvious masses Skin: Warm, dry, no erythema, no rash. Extremities: No tenderness, no cyanosis, no clubbing, ROM intact, no edema. Neurologic: Alert and oriented, normal motor function, normal sensory function, no focal deficits noted. Psychologic: Affect normal, judgement normal, mood normal. Current Patient Data: Vital Signs: Vital Signs Date Time Temp Pulse Resp B/P (MAP) Pulse Ox O2 Delivery O2 Flow Rate FiO2 08/21/21 11:38 98.0 66 18 178/101 (126) 97 EKG: EKG: Twelve-lead EKG demonstrates a sinus rhythm with an overall rate of 70 bpm. OR, QRS and QT corrected intervals are within normal limits. No ST segment elevation or depression. [] Radiology/Procedures: Radiology/Procedures: [] Heart Score: C/O Chest Pain: Yes HEART Score for Chest Pain: HEART Score for Chest Pain Response (Comments) Value History Slighlty/Non-Suspicious 0 ECG Normal 0 Age < 45 0 Risk Factors 1 or 2 Risk Factors 1 Troponin < Normal Limit 0 Total 1 Risk Factors: Risk Factors: DM, Current or recent (<one month) smoker, HTN, HLP, family history of CAD, obesity. Risk Scores: Score 0 - 3: 2.5% MACE over next 6 weeks - Discharge Home Score 4 - 6: 20.3% MACE over next 6 weeks - Admit for Clinical Observation Score 7 - 10: 72.7% MACE over next 6 weeks - Early Invasive Strategies Course & Med Decision Making: Course & Med Decision Making Pertinent Labs and Imaging studies reviewed. (See chart for details) [] Is a 46-year-old female presents with a headache. Patient was given 10 of Compazine, 50 of Benadryl and 15 of Toradol IV. On reassessment symptoms have resolved. We will give her prescriptions for the above medications, she is stable for discharge at this time. Irene Disclaimer: Irene Disclaimer: This electronic medical record was generated, in whole or in part, using a voice recognition dictation system. Departure Departure: Impression: Primary Impression: Headache Disposition: HOME / SELF CARE / HOMELESS Condition: STABLE Referrals: REBEL PINA (PCP) Patient Instructions: Headache, FAQs Scripts Diphenhydramine Hcl (BENADRYL) 25 Mg Capsule 2 CAP PO Q6HRS for headache for 30 Days, #20 CAP 0 Refills Prov: LAURA ALVARADO MD 08/21/21 Prochlorperazine Maleate (Compazine) 10 Mg Tablet 1 TAB PO Q6HRS for headache, nausea for 7 Days, #10 TAB 0 Refills Prov: LAURA ALVARADO MD 08/21/21 Ketorolac Tromethamine (KETOROLAC TROMETHAMINE) 10 Mg Tablet 1 TAB PO PRN Q6HRS for pain, #10 TAB Prov: LAURA ALVARADO MD 08/21/21 LAURA ALVARADO MD Aug 21, 2021 12:03
[2021-08-21] MEDS ORDERED: KETO10TA PO (12:32)
[2021-08-21] MEDS ORDERED: DIPH25CA58 PO (12:32)
[2021-08-21] MEDS ORDERED: PROC10TA57 PO (12:32)
[2021-08-21 12:39] VITALS: BP 154/79
--- NOTE | 2021-08-21 12:53 | EKG ---
[address] [address] Test Date: 2021-08-21 Test Time: 11:43:09 Pat Name: JUSTA CORDERO Department: Room: Gender: F Nurse Manager: CAROLYN : 1975 Requested By: LAURA ALVARADO Order Number: [id number] Reading MD: Mark Alba Measurements Intervals [place] Rate: 70 P: -6 [place]: 172 QRS: 6 QRSD: 74 T: -10 QT: 394 QTc: 428 Interpretive Statements SINUS RHYTHM MILD T ABNORMALITY IN INFERIOR LEADS Electronically Signed On 08-21-2021 17:55:23 CDT by Mark Alba
== END 2021-08-21 12:40 | disposition home or self-care (01) ==
LOC: ER 11:33
DX: G43.909 Migraine, unspecified, not intractable, without status migrainosus (principal); R11.0 Nausea; R07.89 Other chest pain; J45.909 Unspecified asthma, uncomplicated; M79.7 Fibromyalgia; Z91.041 Radiographic dye allergy status; Z88.2 Allergy status to sulfonamides; Z91.040 Latex allergy status; Z88.8 Allergy status to other drugs, medicaments and biological substances
CPT/HCPCS: 93005; 96374; 96375; 99284; J0780; J1200; J1885